=== PATIENT | male | born 1940 | race Caucasian/White ===

== ENCOUNTER 2019-04-21 07:44 | Emergency (ER) | payer OTHER ==
[2019-04-21] MEDS ORDERED: HYDROCODONE/APAP 10/325 TAB ONE (08:18)
--- NOTE | 2019-04-21 09:45 | ER ---
Nurse's Notes [facility] Name: Konstantin Hoskins Age: 78 yrs Sex: Male : 1940 Arrival Date: 04/21/2019 Time: 07:47 Bed 7 Private MD: Unknown, Unknown Diagnosis: Multiple fractures of ribs, left side Presentation: 04/21 07:54 Presenting complaint: Patient states: L lateral chest wall pain that began 2 days ago ss after slipping while getting out of shower. Care prior to arrival: None. Mechanism of Injury: Fall from standing position. Trauma event details: Injury occurred in the [facility], Injury occurred: at home. Injury occurred: April 19, 2019. 07:54 Acuity: TIFFANY 3 ss 07:54 Method Of Arrival: Ambulatory ss 07:54 Transition of care: patient was not received from another setting of care. Onset of sv symptoms was April 19, 2019. Risk Assessment: Do you want to hurt yourself or someone else? Patient reports no desire to harm self or others. Initial Sepsis Screen: Does the patient meet any 2 criteria? No. Patient's initial sepsis screen is negative. Does the patient have a suspected source of infection? No. Patient's initial sepsis screen is negative. Triage Assessment: 07:57 General: Appears in no apparent distress. uncomfortable, slender, Behavior is calm, sv cooperative, appropriate for age. Pain: Complains of pain in right lateral anterior chest and right lateral posterior chest Pain currently is 9 out of 10 on a pain scale. Quality of pain is described as sharp, Pain began 2-3 days ago. Is intermittent, episodic, Alleviated by splinting the left side with his arm Aggravated by increased activity, repositioning, coughing or deep breathing. Neuro: Level of Consciousness is awake, alert, obeys commands, Oriented to person, place, time, situation, Moves all extremities. Full function Gait is steady, Speech is normal. Cardiovascular: Heart tones S1 S2 present Patient's skin is warm and dry. Respiratory: Airway is patent Respiratory effort is unlabored, shallow, Respiratory pattern is regular, symmetrical. Derm: Skin is pink, warm \T\ dry. Trauma Activation: Not Applicable Physician: ED Physician; Name: ; Notified At: ; Arrived At: Physician: General Surgeon; Name: ; Notified At: ; Arrived At: Physician: Radiology; Name: ; Notified At: ; Arrived At: Physician: Respiratory; Name: ; Notified At: ; Arrived At: Physician: Lab; Name: ; Notified At: ; Arrived At: Historical: - Allergies: 07:56 No Known Allergies; sv - Home Meds: 07:56 lisinopril 10 mg Oral tab 1 tab once daily [Active]; sv - PMHx: 07:56 Hypertension; sv - PSHx: 07:56 None; sv - Immunization history:: Adult Immunizations up to date, Flu vaccine is not up to date. - Social history:: Smoking status: Patient/guardian denies using tobacco. - Ebola Screening: : No symptoms or risks identified at this time. Screenin:07 Abuse screen: Denies threats or abuse. Denies injuries from another. Nutritional sv screening: No deficits noted. Tuberculosis screening: No symptoms or risk factors identified. Fall Risk None identified. Assessment: 08:08 Reassessment: Patient appears in no apparent distress at this time. No changes from sv previously documented assessment. Patient and/or family updated on plan of care and expected duration. Pain level reassessed. Patient is alert, oriented x 3, equal unlabored respirations, skin warm/dry/pink. See triage assessment. Vital Signs: 07:54 BP 181 / 113; Pulse 88; Resp 20; Temp 97.4(TE); Pulse Ox 97% on R/A; Weight 78.02 kg; ss Height 5 ft. 10 in. (177.80 cm); Pain 9/10; 08:06 BP 163 / 115; Pulse 82; Resp 20; Pulse Ox 97% ; sv 08:58 BP 143 / 85; Pulse 92; Resp 18; Pulse Ox 96% ; sv 09:45 BP 152 / 89; Pulse 76; Resp 18; Pulse Ox 96% ; sv 10:06 BP 174 / 94; Pulse 85; Resp 16; Pulse Ox 97% on R/A; la1 07:54 Body Mass Index 24.68 (78.02 kg, 177.80 cm) Robby Coma Score: 07:54 Eye Response: spontaneous(4). Verbal Response: oriented(5). Motor Response: obeys commands(6). Total: 15. Trauma Score (Adult): 07:54 Eye Response: spontaneous(1); Verbal Response: oriented(1); Motor Response: obeys ss commands(2); Systolic BP: > 89 mm Hg(4); Respiratory Rate: 10 to 29 per min(4); Union Score: 15; Trauma Score: 12 ED Course: 07:47 Patient arrived in ED. ag5 07:48 Unknown, Unknown is Private Physician. ag5 07:50 Shani Pyle RN is Primary Nurse. sv 07:52 Shay Sena MD is Attending Physician. kdr 07:54 Patient has correct armband on for positive identification. Bed in low position. Call sv light in reach. Adult w/ patient. Pulse ox on. NIBP on. Door closed. Head of bed elevated. 07:55 Triage completed. ss 07:57 Arm band placed on. sv 08:07 Awaiting for x-ray. sv 08:22 Patient moved to radiology via wheelchair. ss 08:30 Chest Pa And Lat (2 Views) XRAY In Process Unspecified. EDMS 08:59 Awaiting radiology results. Awaiting re-evaluation by ER provider. sv 09:56 Ribs Left XRAY In Process Unspecified. EDMS 10:06 No provider procedures requiring assistance completed. Patient did not have IV access la1 during this emergency room visit. 19:16 Primary Nurse role handed off by Shani Pyle RN Administered Medications: 08:06 Drug: [place] 10 mg-325 mg 1 tabs Route: PO; sv 10:08 Follow up: Response: No adverse reaction; Pain is decreased la1 Outcome: 09:45 Discharge ordered by . kdr 10:06 Discharged to home ambulatory. la1 10:06 Discharged to home ambulatory. 10:06 Condition: stable 10:06 Condition: stable 10:06 Discharge instructions given to patient, Instructed on discharge instructions, follow up and referral plans. 10:06 Discharge instructions given to patient, family, Instructed on discharge instructions, follow up and referral plans. medication usage, incentive spirometer use Demonstrated understanding of instructions, follow-up care, medications, Prescriptions given X 1. 10:08 Patient left the ED. la1 Signatures: Dispatcher [employer] EDMS Shani Pyle RN RN sv Rittger, Kevin, MD MD kdr Smirch, Shelby, RN RN ss Attema, Lee, RN RN la1 Fransico, Abilio ag5
--- NOTE | 2019-04-21 09:46 | EDPHYS ---
Physician Documentation [facility] Name: Konstantin Hoskins Age: 78 yrs Sex: Male : 1940 Arrival Date: 04/21/2019 Time: 07:47 Bed 7 Private MD: Unknown, Unknown ED Physician Shay Sena HPI: 04/21 08:15 This 78 yrs old Male presents to ER via Ambulatory with complaints of Fall kdr Injury. 08:15 Details of fall: The patient fell from an upright position, while standing. Onset: The kdr symptoms/episode began/occurred suddenly, 2 day(s) ago. Associated injuries: The patient sustained injury to the chest, specifically the left breast. Severity of symptoms: At their worst the symptoms were mild. The patient has not experienced similar symptoms in the past. The patient has not recently seen a physician. Historical: - Allergies: 07:56 No Known Allergies; sv - Home Meds: 07:56 lisinopril 10 mg Oral tab 1 tab once daily [Active]; sv - PMHx: 07:56 Hypertension; sv - PSHx: 07:56 None; sv - Immunization history:: Adult Immunizations up to date, Flu vaccine is not up to date. - Social history:: Smoking status: Patient/guardian denies using tobacco. - Ebola Screening: : No symptoms or risks identified at this time. ROS: 08:15 Constitutional: Negative for fever, chills, and weight loss, Eyes: Negative for injury, kdr pain, redness, and discharge, ENT: Negative for injury, pain, and discharge, Neck: Negative for injury, pain, and swelling, Respiratory: Negative for shortness of breath, cough, wheezing, and pleuritic chest pain, Abdomen/GI: Negative for abdominal pain, nausea, vomiting, diarrhea, and constipation, Back: Negative for injury and pain, : Negative for injury, bleeding, discharge, and swelling, MS/Extremity: Negative for injury and deformity, Neuro: Negative for headache, weakness, numbness, tingling, and seizure activity. Psych: Negative for depression, anxiety, suicide ideation, homicidal ideation, and hallucinations, Allergy/Immunology: Negative for hives, rash, and allergies, Endocrine: Negative for neck swelling, polydipsia, polyuria, polyphagia, and marked weight changes, Hematologic/Lymphatic: Negative for swollen nodes, abnormal bleeding, and unusual bruising. 08:15 Cardiovascular: Positive for chest pain, with cough, with movement, of the left breast. 08:15 Skin: Positive for ecchymosis, of the dorsal aspect of left forearm, left wrist and palmar aspect of left forearm, Negative for abscesses, avulsion, burn, cellulitis, diaphoresis, discoloration, erythema, jaundice, laceration(s), lesions. Exam: 08:21 Constitutional: This is a well developed, well nourished patient who is awake, alert, kdr and in no acute distress. Head/Face: Normocephalic, atraumatic. Eyes: Pupils equal round and reactive to light, extra-ocular motions intact. Lids and lashes normal. Conjunctiva and sclera are non-icteric and not injected. Cornea within normal limits. Periorbital areas with no swelling, redness, or edema. Neck: Trachea midline, no thyromegaly or masses palpated, and no cervical lymphadenopathy. Supple, full range of motion without nuchal rigidity, or vertebral point tenderness. No Meningismus. Chest/axilla: Normal chest wall appearance and motion. No deformity. Tender to palpation below left nipple with occasional popping. No crepitus. No lesions are appreciated. Cardiovascular: Regular rate and rhythm with a normal S1 and S2. No gallops, murmurs, or rubs. Normal PMI, no JVD. No pulse deficits. Respiratory: Lungs have equal breath sounds bilaterally, clear to auscultation and percussion. No rales, rhonchi or wheezes noted. No increased work of breathing, no retractions or nasal flaring. Abdomen/GI: Soft, non-tender, with normal bowel sounds. No distension or tympany. No guarding or rebound. No evidence of tenderness throughout. Back: No spinal tenderness. No costovertebral tenderness. Full range of motion. Skin: Warm, dry with normal turgor. Normal color with no rashes, no lesions, and no evidence of cellulitis. MS/ Extremity: Pulses equal, no cyanosis. Neurovascular intact. Full, normal range of motion. Neuro: Awake and alert, GCS 15, oriented to person, place, time, and situation. Cranial nerves II-XII grossly intact. Motor strength 5/5 in all extremities. Sensory grossly intact. Cerebellar exam normal. Normal gait. Psych: Awake, alert, with orientation to person, place and time. Behavior, mood, and affect are within normal limits. Vital Signs: 07:54 BP 181 / 113; Pulse 88; Resp 20; Temp 97.4(TE); Pulse Ox 97% on R/A; Weight 78.02 kg; ss Height 5 ft. 10 in. (177.80 cm); Pain 9/10; 08:06 BP 163 / 115; Pulse 82; Resp 20; Pulse Ox 97% ; sv 08:58 BP 143 / 85; Pulse 92; Resp 18; Pulse Ox 96% ; sv 09:45 BP 152 / 89; Pulse 76; Resp 18; Pulse Ox 96% ; sv 10:06 BP 174 / 94; Pulse 85; Resp 16; Pulse Ox 97% on R/A; la1 07:54 Body Mass Index 24.68 (78.02 kg, 177.80 cm) ss Robby Coma Score: 07:54 Eye Response: spontaneous(4). Verbal Response: oriented(5). Motor Response: obeys ss commands(6). Total: 15. Trauma Score (Adult): 07:54 Eye Response: spontaneous(1); Verbal Response: oriented(1); Motor Response: obeys ss commands(2); Systolic BP: > 89 mm Hg(4); Respiratory Rate: 10 to 29 per min(4); Comanche Score: 15; Trauma Score: 12 MDM: 08:21 Data reviewed: vital signs, nurses notes, radiologic studies. Counseling: I had a kdr detailed discussion with the patient and/or guardian regarding: the historical points, exam findings, and any diagnostic results supporting the discharge/admit diagnosis, radiology results, the need for outpatient follow up. 09:45 Patient medically screened. kdr 04/21 08:01 Order name: Chest Pa And Lat (2 Views) XRAY sv 04/21 09:01 Order name: Ribs Left XRAY kdr 04/21 09:48 Order name: INCENTIVE SPIROMETRY kdr Administered Medications: 08:06 Drug: [place] 10 mg-325 mg 1 tabs Route: PO; sv 10:08 Follow up: Response: No adverse reaction; Pain is decreased la1 Disposition: 04/21/19 09:45 Discharged to Home. Impression: Multiple fractures of ribs, left side. - Condition is Fair. - Discharge Instructions: Incentive Spirometer, Rib Fracture, [id number]. - Prescriptions for Tylenol- Codeine #3 300-30 mg Oral Tablet - take 2 tablets by ORAL route every 6 hours As needed; 30 tablet. - Medication Reconciliation Form, Thank You Letter, Prescription Opioid Use form. - Follow up: Private Physician; When: 2 - 3 days; Reason: If symptoms return, Further diagnostic work-up, Recheck today's complaints, Continuance of care, Re-evaluation by your physician. - Problem is new. - Symptoms have improved. Signatures: Dispatcher [employer] EDMS Shani Pyle RN RN sv Shay Sena MD MD kdr Asif Underwood RN RN la1 Corrections: (The following items were deleted from the chart) 10:08 09:45 04/21/2019 09:45 Discharged to Home. Impression: Multiple fractures of ribs, left la1 side. Condition is Fair. Forms are Medication Reconciliation Form, Thank You Letter, Antibiotic Education, Prescription Opioid Use. Follow up: Private Physician; When: 2 - 3 days; Reason: If symptoms return, Further diagnostic work-up, Recheck today's complaints, Continuance of care, Re-evaluation by your physician. Problem is new. Symptoms have improved. kdr
--- NOTE | 2019-04-21 11:31 | RAD REPORT ---
EXAM DESCRIPTION: RAD - Chest Pa And Lat (2 Views) - 04/21/2019 8:31 am CLINICAL HISTORY: fall;Pain Chest pain. COMPARISON: Ribs Left dated 04/21/2019 FINDINGS: The lungs are clear. No pneumothorax. The heart is normal in size. Coronary calcification is noted. Nondisplaced oblique fracture affecting the left lateral fifth, sixth and seventh ribs note d.
--- NOTE | 2019-04-21 11:47 | RAD REPORT ---
EXAM DESCRIPTION: RAD - Ribs Left - 04/21/2019 9:54 am CLINICAL HISTORY: Fall and thorax pain Fall, chest pain COMPARISON: Chest Pa And Lat (2 Views) dated 04/21/2019 FINDINGS: Nondisplaced lateral left fifth, sixth and seventh rib fractures are suspected. Bones are demineralized. No pneumothorax.
== END 2019-04-21 10:08 | disposition home or self-care (01) ==
LOC: ER 07:44
DX: S22.42XA Multiple fractures of ribs, left side, initial encounter for closed fracture (principal); W18.30XA Fall on same level, unspecified, initial encounter; I10 Essential (primary) hypertension
CPT/HCPCS: 71046; 99284

== ENCOUNTER 2020-02-02 10:45 | Emergency (ER) | payer OTHER ==
--- NOTE | 2020-02-02 12:13 | ER ---
Nurse's Notes [facility] Name: Konstantin Hoskins Age: 79 yrs Sex: Male : 1940 Arrival Date: 02/02/2020 Time: 10:48 Bed 17 Private MD: Diagnosis: Urinary tract infection, site not specified Presentation: 02/01 10:52 Chief complaint: Patient states: pain with urination x 5 days, denies nausea, vomiting dm5 and other abdominal pain. Coronavirus screen: The patient has NOT traveled to a country currently being monitored by the [facility] within the last 14 days. Proceed with normal triage procedures. The patient has NOT had contact with any known and/or suspected case of coronavirus. Proceed with normal triage procedures. Ebola Screen: Patient negative for fever greater than or equal to 101.5 degrees Fahrenheit, and additional compatible Ebola Virus Disease symptoms Patient denies exposure to infectious person. Patient denies travel to an Ebola-affected area in the 21 days before illness onset. No symptoms or risks identified at this time. Initial Sepsis Screen: Does the patient meet any 2 criteria? No. Patient's initial sepsis screen is negative. Does the patient have a suspected source of infection? No. Patient's initial sepsis screen is negative. Risk Assessment: Do you want to hurt yourself or someone else? Patient reports no desire to harm self or others. 10:52 Method Of Arrival: Ambulatory dm5 10:52 Acuity: TIFFANY 3 dm5 12:00 Onset of symptoms was January 28, 2020. vc Triage Assessment: 12:00 General: Appears in no apparent distress. comfortable, Behavior is calm, cooperative, vc appropriate for age. Historical: - Allergies: 12:46 No Known Allergies; jl7 - Home Meds: 12:46 lisinopril 10 mg Oral tab 1 tab once daily [Active]; jl7 - PMHx: 12:46 Hypertension; jl7 - PSHx: 12:46 None; jl7 - Immunization history:: Adult Immunizations unknown. - Social history:: Smoking status: unknown. Screenin:00 Abuse screen: Denies threats or abuse. Nutritional screening: No deficits noted. vc Tuberculosis screening: No symptoms or risk factors identified. Fall Risk None identified. Assessment: 12:00 General: Appears in no apparent distress. comfortable, Behavior is calm, cooperative, vc appropriate for age. Pain: Complains of pain in with urination. Neuro: Level of Consciousness is awake, alert, obeys commands. Respiratory: Airway is patent Respiratory effort is even, unlabored, Respiratory pattern is regular, symmetrical. : Reports pain with urination. 12:35 Reassessment: Pt will be discharged once shot time is up. 7 Vital Signs: 10:52 BP 128 / 70; Pulse 79; Resp 18; Temp 97(TE); Pulse Ox 98% on R/A; Weight 78.56 kg (M); dm5 Height 5 ft. 9 in. (175.26 cm) (R); 12:15 BP 115 / 60; Pulse 73; Resp 17; Temp 97.6; Pulse Ox 98% on R/A; mh5 10:52 Body Mass Index 25.58 (78.56 kg, 175.26 cm) [facility] ED Course: 10:48 Patient arrived in ED. mr 10:54 Triage completed. [facility] 11:22 Sal Vaughan PA is PHCP. [facility] 11:22 Yadiel Bear MD is Attending Physician. [facility] 11:23 Madina Byers, RONNY is Primary Nurse. vc 12:09 Urine collected: clean catch specimen, cloudy. [facility] 12:09 Patient has correct armband on for positive identification. Bed in low position. Call 5 light in reach. Pulse ox on. NIBP on. 12:12 Natanael Bellamy MD is Referral Physician. [facility] 12:37 Urine Culture Sent. [facility] 12:48 No provider procedures requiring assistance completed. Patient did not have IV access jl during this emergency room visit. Administered Medications: 12:35 Drug: Rocephin (cefTRIAXone) 1 grams Route: IM; Site: right ventrogluteal; jl7 12:45 Follow up: Response: No adverse reaction vc Outcome: 12:12 Discharge ordered by . [facility] 12:48 Discharged to home ambulatory. 7 12:48 Condition: stable 12:48 Discharge instructions given to patient, Instructed on discharge instructions, follow up and referral plans. medication usage, Demonstrated understanding of instructions, follow-up care, medications. 12:59 Patient left the ED. vc Addendum: 02/04/2020 08:26 Addendum: Culture Results: Positive urine culture. Bacteria is resistant to, has i w intermediate sensitivity, or is not tested against prescribed antibiotics. Report given to NADIRA for further evaluation and then to cream ripener for follow up with patient. Phone call Attempt #1 no answer, and no voice mail set up. Signatures: Odessa Booker, RN RN dm5 Sal Vaughan PA PA jmm Rivera, Mary mr AggarwalLisa RN RN iw Martinez, Maria Aroldo Cole RN RN jl7 Madina Byers RN RN vc Corrections: (The following items were deleted from the chart) 08:28 08:26 Addendum: Culture Results: Positive urine culture. iw chan
--- NOTE | 2020-02-02 12:13 | EDPHYS ---
Physician Documentation [facility] Name: Konstantin Hoskins Age: 79 yrs Sex: Male : 1940 Arrival Date: 02/02/2020 Time: 10:48 Bed 17 Private MD: ED Physician Yadiel Bear HPI: 02/01 11:45 This 79 yrs old Male presents to ER via Ambulatory with complaints of Urinary jmm Problem. 11:45 The patient presents with urinary symptoms, dysuria, urinary frequency. Onset: The jmm symptoms/episode began/occurred gradually, 5 day(s) ago. Modifying factors: The symptoms are alleviated by nothing, the symptoms are aggravated by nothing. This is a 79 year old male with a history of htn that presents to the ED with complaints of difficulty with urination and increased frequency over the past 5 days. Patient denies abdominal pain, fullness, vomiting, fever, back pain. Patient had a similar episode 15 years ago. . Historical: - Allergies: 12:46 No Known Allergies; jl7 - Home Meds: 12:46 lisinopril 10 mg Oral tab 1 tab once daily [Active]; jl7 - PMHx: 12:46 Hypertension; jl7 - PSHx: 12:46 None; jl7 - Immunization history:: Adult Immunizations unknown. - Social history:: Smoking status: unknown. ROS: 11:45 Constitutional: Negative for fever, chills, and weight loss, Cardiovascular: Negative jmm for chest pain, palpitations, and edema, Respiratory: Negative for shortness of breath, cough, wheezing, and pleuritic chest pain. 11:45 : Positive for urinary symptoms. 11:45 All other systems are negative. Exam: 11:45 Constitutional: This is a well developed, well nourished patient who is awake, alert, jmm and in no acute distress. Head/Face: atraumatic. Eyes: EOMI, no conjunctival erythema appreciated ENT: Moist Mucus Membranes Neck: Trachea midline, Supple Chest/axilla: Normal chest wall appearance and motion. Cardiovascular: Regular rate and rhythm. No edema appreciated Respiratory: Normal respirations, no respiratory distress appreciated Abdomen/GI: Non distended, soft Back: Normal ROM Skin: General appearance color normal MS/ Extremity: Moves all extremities, no obvious deformities appreciated, no edema noted to the lower extremities Neuro: Awake and alert, normal gait Psych: Behavior is normal, Mood is normal, Patient is cooperative and pleasant Vital Signs: 10:52 BP 128 / 70; Pulse 79; Resp 18; Temp 97(TE); Pulse Ox 98% on R/A; Weight 78.56 kg (M); dm5 Height 5 ft. 9 in. (175.26 cm) (R); 12:15 BP 115 / 60; Pulse 73; Resp 17; Temp 97.6; Pulse Ox 98% on R/A; mh5 10:52 Body Mass Index 25.58 (78.56 kg, 175.26 cm) dm5 MDM: 11:23 Patient medically screened. [facility] 12:09 Data reviewed: vital signs, nurses notes. Counseling: I had a detailed discussion with komal the patient and/or guardian regarding: the historical points, exam findings, and any diagnostic results supporting the discharge/admit diagnosis, lab results, the need for outpatient follow up, to return to the emergency department if symptoms worsen or persist or if there are any questions or concerns that arise at home. ED course: Patient prescribed oral antibiotics and advised to follow up with Urology for further evaluation. Patient is otherwise given strict return precautions. patient understood and agrees with the plan of care. . 02/01 11:25 Order name: Urine Culture [facility] 02/01 11:37 Order name: Urine Dipstick--Ancillary (enter results); Complete Time: 12:41 02/01 11:25 Order name: Urine Dipstick-Ancillary (obtain specimen); Complete Time: 11:33 [facility] Administered Medications: 12:35 Drug: Rocephin (cefTRIAXone) 1 grams Route: IM; Site: right ventrogluteal; jl7 12:45 Follow up: Response: No adverse reaction vc Disposition: 02/02/20 12:12 Discharged to Home. Impression: Urinary tract infection, site not specified. - Condition is Stable. - Discharge Instructions: Urinary Tract Infection, Adult. - Prescriptions for Cephalexin 500 mg Oral Capsule - take 1 capsule by ORAL route every 12 hours for 10 days; 20 capsule. - Medication Reconciliation Form, Thank You Letter, Antibiotic Education, Prescription Opioid Use form. - Follow up: Natanael Bellamy MD; When: 2 - 3 days; Reason: Recheck today's complaints, Continuance of care, Re-evaluation by your physician. Addendum: 02/04/2020 09:05 Co-signature as Attending Physician, Yadiel Bear MD I agree with the assessment and c reyes plan of care. Signatures: Dispatcher [employer] EDYadiel Bates MD MD cha Mickail, Joel, PA PA jmm Leal, Jahala, RN RN jl7 Madina Byers RN RN vc Corrections: (The following items were deleted from the chart) 02/01 12:59 12:12 02/02/2020 12:12 Discharged to Home. Impression: Urinary tract infection, site vc not specified. Condition is Stable. Forms are Medication Reconciliation Form, Thank You Letter, Antibiotic Education, Prescription Opioid Use. Follow up: Natanael Bellamy; When: 2 - 3 days; Reason: Recheck today's complaints, Continuance of care, Re-evaluation by your physician. komal
[2020-02-02 12:28] LABS: Urine Blood 2+ (NEG); Urine Glucose NEGATIVE (NEG); Urine Protein 2+ (NEG); Urine pH 5.5 (5.0-7.0)
[2020-02-02] MEDS ORDERED: CEFTRIAXONE 1000 MG/VIAL ONE (12:39)
[2020-02-02] MEDS ORDERED: LIDOCAINE 1% MPF 2 ML AMPULE ONE (12:40)
[2020-02-02 13:06] VITALS: O2SAT 98
[2020-02-02 13:08] VITALS: BP 115/60; TEMP 97.6
== END 2020-02-02 12:59 | disposition home or self-care (01) ==
LOC: ER 10:45
DX: N39.0 Urinary tract infection, site not specified (principal)
CPT/HCPCS: 87088; 87086; 87077; 87186; 81003; 96372; 99283; J2001

== ENCOUNTER 2020-02-20 08:43 | Emergency (ER) | payer OTHER ==
--- NOTE | 2020-02-20 09:30 | EDPHYS ---
Physician Documentation [facility] Name: Konstantin Hoskins Age: 79 yrs Sex: Male : 1940 Arrival Date: 02/20/2020 Time: 08:44 Bed 19 Private MD: ED Physician Dominguez Ernandez HPI: 02/19 08:57 This 79 yrs old Male presents to ER via Ambulatory with complaints of urinary ms3 frequency and only producing small amounts of urine. 08:57 The patient presents with urinary symptoms, dribbling of urine, urinary frequency, ms3 constant. Onset: The symptoms/episode began/occurred 3 week(s) ago. Modifying factors: The symptoms are alleviated by nothing, the symptoms are aggravated by nothing. Associated signs and symptoms: Pertinent negatives: abdominal pain, diarrhea, dysuria, fever, hematuria, nausea, vomiting. Severity of symptoms: At their worst the symptoms were moderate, in the emergency department the symptoms are unchanged. The patient has experienced a previous episode. The patient has been recently seen by a physician: seen at the OR and has finished course of unknown abx for UTI. Historical: - Allergies: 08:55 No Known Allergies; aa5 - PMHx: 08:55 Hypertension; ss - Immunization history:: Adult Immunizations up to date. - Family history:: not pertinent. ROS: 08:57 Constitutional: Negative for fever, and chills. Eyes: Negative for injury, pain, ms3 redness, and discharge, ENT: Negative for injury, pain, and discharge, Neck: Negative for injury, pain, and swelling, Cardiovascular: Negative for chest pain, and palpitations. Respiratory: Negative for shortness of breath, cough, wheezing, and pleuritic chest pain, Abdomen/GI: Negative for abdominal pain, nausea, vomiting, diarrhea, and constipation, Back: Negative for injury and pain. 08:57 Skin: Negative for injury, rash, and discoloration. 08:57 : Positive for urinary symptoms, urinary frequency, small amounts. 08:57 All other systems are negative. Exam: 08:57 Constitutional: This is a well developed, well nourished patient who is awake, alert, ms3 and in no acute distress. Head/Face: Normocephalic, atraumatic. Eyes: Pupils equal round and reactive to light, extra-ocular motions intact. Lids and lashes normal. Conjunctiva and sclera are non-icteric and not injected. Cornea within normal limits. Periorbital areas with no swelling, redness, or edema. Chest/axilla: Normal chest wall appearance and motion. Nontender with no deformity. Cardiovascular: Regular rate and rhythm. Respiratory: No increased work of breathing, no retractions or nasal flaring. 08:57 Back: No spinal tenderness. No costovertebral tenderness. Full range of motion. MS/ Extremity: Pulses equal, no cyanosis. Neurovascular intact. Full, normal range of motion. 08:57 Abdomen/GI: Palpation: abdomen is soft and non-tender, in all quadrants, mass, is not appreciated. Vital Signs: 09:02 BP 138 / 85; Pulse 74; Resp 16; Temp 97.6(TE); Pulse Ox 100% on R/A; Weight 77.56 kg; ss Pain 0/10; Procedures: 08:57 Ultrasound: Type: Bedside Ultrasound of bladder shows bladder to 4 cm below umbilicus. ms3 Will repeat US after patient voids.. MDM: 08:56 Patient medically screened. ms3 09:32 Data reviewed: vital signs, nurses notes, lab test result(s), urinalysis, hematuria, ms3 pyuria. 09:32 Differential diagnosis: nonspecific abdominal pain, UTI, urinary retention. Medical ms3 screen evaluation completed. EMTALA emergency medical condition absent. ED course: Repeat BS ultrasound showed bladder to 6 cm below umbilicus. Discussed UA with pt. Pt recently completed course of Keflex. Will give Rx for Bactrim DS. Pt offered vanegas catheter and pt declined. Pt to follow up with his PMD in 24-48 hours. Pt understands/ agrees with plan. All questions answered. Return precautions discussed. Pt a/o x4, nad, non-toxic, ambuatory in ED. . 02/19 09:22 Order name: Urine Culture 02/19 09:12 Order name: Urine Dipstick-Ancillary (obtain specimen); Complete Time: 09:14 ss 02/19 09:23 Order name: Urine Dipstick--Ancillary (enter results); Complete Time: 09:36 bd 02/19 09:36 Interpretation: Abnormal: USPGR 1.020; UGLUC NEGATIVE; UKET NEGATIVE; UBLD 1+; UPH 8.5; ms3 UPROT 1+; U NIT NEGATIVE; UESTR 3+. Administered Medications: No medications were administered Disposition: 09:38 Co-signature as Attending Physician, Dominguez Ernandez DO. ms3 Disposition: 02/20/20 09:29 Discharged to Home. Impression: Urinary tract infection, site not specified, Acute cystitis. - Condition is Stable. - Discharge Instructions: Urinary Tract Infection, Adult. - Prescriptions for Bactrim DS 800- 160 mg Oral Tablet - take 1 tablet by ORAL route every 12 hours for 10 days; 20 tablet. - Medication Reconciliation Form, Thank You Letter, Antibiotic Education, Prescription Opioid Use form. - Follow up: Private Physician; When: 24 Hours; Reason: Re-evaluation by your physician. - Problem is new. - Symptoms are unchanged. Signatures: Dispatcher [employer] [facility] Dennise Camarena RN RN aa5 Ruma Helms RN RN ss Dominguez Ernandez DO DO ms3 Corrections: (The following items were deleted from the chart) 09:33 08:56 URINALYSIS+U.LAB.BRZ ordered. [facility] EDMS 09:36 09:36 USPGR 1.020; UGLUC NEGATIVE; UKET NEGATIVE; UBLD 1+; UPH 8.5; UPROT 1+; U NIT ms3 NEGATIVE; UESTR 3+. ms3 09:44 09:29 02/20/2020 09:29 Discharged to Home. Impression: Urinary tract infection, site aa5 not specified; Acute cystitis. Condition is Stable. Forms are Medication Reconciliation Form, Thank You Letter, Antibiotic Education, Prescription Opioid Use. Follow up: Private Physician; When: 24 Hours; Reason: Re-evaluation by your physician. Problem is new. Symptoms are unchanged. ms3
--- NOTE | 2020-02-20 09:30 | ER ---
Nurse's Notes [facility] Name: Konstantin Hoskins Age: 79 yrs Sex: Male : 1940 Arrival Date: 02/20/2020 Time: 08:44 Bed 19 Private MD: Diagnosis: Urinary tract infection, site not specified;Acute cystitis Presentation: 02/19 08:51 Chief complaint: Patient states: urinary retention x 1 month. Pt has urgency, but ss states he has only has been able to dribble. Was recently treated for UTI 3 weeks ago. Coronavirus screen: Patient denies fever greater than 100.4F, cough, shortness of breath, or difficulty breathing. Proceed with normal triage process. Ebola Screen: Patient denies exposure to infectious person. Patient denies travel to an Ebola-affected area in the 21 days before illness onset. Risk Assessment: Do you want to hurt yourself or someone else? Patient reports no desire to harm self or others. 08:51 Method Of Arrival: Ambulatory ss 08:51 Acuity: TIFFANY 3 ss 08:55 Initial Sepsis Screen: Does the patient meet any 2 criteria? No. Patient's initial aa5 sepsis screen is negative. Does the patient have a suspected source of infection? No. Patient's initial sepsis screen is negative. Historical: - Allergies: 08:55 No Known Allergies; aa5 - PMHx: 08:55 Hypertension; ss - Immunization history:: Adult Immunizations up to date. - Family history:: not pertinent. Screenin:02 Abuse screen: Denies threats or abuse. Denies injuries from another. Nutritional ss screening: No deficits noted. Tuberculosis screening: Never had TB. Fall Risk None identified. Assessment: 08:50 General: Appears comfortable, Behavior is calm, cooperative. Pain: Denies pain. Neuro: aa5 Level of Consciousness is awake, alert, obeys commands, Oriented to person, place, time, situation. Cardiovascular: Patient's skin is warm and dry. Respiratory: Airway is patent Respiratory effort is even, unlabored, Respiratory pattern is regular, symmetrical. GI: No signs and/or symptoms were reported involving the gastrointestinal system. : Reports inability to void, urgency, urinary frequency. EENT: No signs and/or symptoms were reported regarding the EENT system. Derm: Skin is pink, warm \T\ dry. Musculoskeletal: Range of motion: intact in all extremities. 09:20 Reassessment: Urine collected, pt voided 30cc of cloudy urine, urine culture sent to aa5 lab. . 09:34 Reassessment: Patient is alert, oriented x 3, equal unlabored respirations, skin aa5 warm/dry/pink. Vital Signs: 09:02 BP 138 / 85; Pulse 74; Resp 16; Temp 97.6(TE); Pulse Ox 100% on R/A; Weight 77.56 kg; ss Pain 0/10; ED Course: 08:44 Patient arrived in ED. am2 08:47 Dominguez Ernandez DO is Attending Physician. ms3 08:55 Triage completed. ss 08:55 Arm band placed on right wrist. ss 09:02 Patient has correct armband on for positive identification. Bed in low position. Call ss light in reach. 09:08 Dennise Camarena, RN is Primary Nurse. aa5 09:35 No provider procedures requiring assistance completed. Patient did not have IV access aa5 during this emergency room visit. Administered Medications: No medications were administered Outcome: 09:29 Discharge ordered by MD. ms3 09:34 Discharged to home ambulatory. aa5 09:34 Condition: stable 09:34 Discharge instructions given to patient, Instructed on discharge instructions, follow up and referral plans. medication usage, Demonstrated understanding of instructions, follow-up care, medications, Prescriptions given X 1. 09:35 Patient left the ED. aa5 Addendum: 02/23/2020 07:26 Addendum: Culture Results: Positive urine culture. No further action required. Bacteria e b sensitive to prescribed antibiotic. Signatures: Dennise Camarena, RONNY JEFFERSON aa5 Ruma Helms RN RN ss Moreno, Amanda am2 Jessy Gibbons Dominguez Ernandez DO DO ms3 Corrections: (The following items were deleted from the chart) 02/19 09:46 09:44 Patient left the ED. aa5 aa5
[2020-02-20 09:32] LABS: Urine Blood 1+ (NEG); Urine Glucose NEGATIVE (NEG); Urine Protein 1+ (NEG); Urine pH 8.5 (5.0-7.0)
[2020-02-20 10:22] VITALS: BP 138/85; TEMP 97.6; O2SAT 100
== END 2020-02-20 09:44 | disposition home or self-care (01) ==
LOC: ER 08:43
DX: N39.0 Urinary tract infection, site not specified (principal); I10 Essential (primary) hypertension
CPT/HCPCS: 81003; 87077; 87086; 87088; 87186; 99282

== ENCOUNTER 2020-07-29 11:31 | Emergency (ER) | payer OTHER ==
--- NOTE | 2020-07-29 13:05 | RAD REPORT ---
EXAM DESCRIPTION: US - Extremity Venous Uni Ltd - 07/29/2020 12:57 pm CLINICAL HISTORY: SWELLING, right leg pain COMPARISON: None. TECHNIQUE: Real-time sonographic evaluation of the right lower extremity deep venous systems was per formed. FINDINGS: Normal compressibility, flow augmentation, phasic flow and spontaneous flow are identified in the right lower extremity common femoral, superficial femoral, popliteal and posterior tibial vei ns. No intraluminal filling defects seen. IMPRESSION: No DVT in the right lower extremity.
--- NOTE | 2020-07-29 13:43 | RAD REPORT ---
EXAM DESCRIPTION: RAD - Knee Right 3 View - 07/29/2020 1:32 pm CLINICAL HISTORY: Pain;Swelling COMPARISON: No comparisons FINDINGS: No acute fracture of the distal femur or patella seen. An acute tibial plateau fracture is not suspected. The patient does have concavity to the lateral tibial plateau with increased scleroti c change deep to the cortical margin. No trauma history was provided. Subtle cortical irregularity se en in the metaphyseal portion of the proximal fibula. Small to moderate joint effusion is present. Minimal marginal spurring without joint space narrowing in the medial compartment. Minimal patella articular margin spurring. Arterial tree calcifications are present. No foreign body. IMPRESSION: There is concavity of the lateral tibial plateau and subtle cortical irregularity of the proximal fibula. Trauma history was not provided. Subacute fracture cannot be excluded. Small to moderate joint effusion. Clinical concerns for internal derangement or occult bony injury could be further assessed with MR im aging.
--- NOTE | 2020-07-29 13:47 | ER ---
Nurse's Notes [facility] Name: Konstantin Hoskins Age: 79 yrs Sex: Male : 1940 Arrival Date: 07/29/2020 Time: 11:36 Bed 7 Private MD: Diagnosis: Subacute tibial plateau fracture Presentation: 07/29 11:43 Chief complaint: Patient states: RLE swelling with pitting edema for 10 days. ll1 Coronavirus screen: Client denies travel out of the [place] in the last 14 days. At this time, the client does not indicate any symptoms associated with coronavirus-19. Ebola Screen: Patient denies travel to an Ebola-affected area in the 21 days before illness onset. Initial Sepsis Screen: Does the patient meet any 2 criteria? No. Patient's initial sepsis screen is negative. Risk Assessment: Do you want to hurt yourself or someone else? Patient reports no desire to harm self or others. Onset of symptoms was July 20, 2020. 11:43 Method Of Arrival: Ambulatory ll1 11:43 Acuity: TIFFANY 3 ll1 Triage Assessment: 12:00 General: Behavior is appropriate for age. jr10 Historical: - Allergies: 11:45 No Known Allergies; ll1 - PMHx: 11:45 Hypertension; prostate problem-catheter; mild dementia; A fib; ll1 - PSHx: 11:45 staph infection left arm; ll1 - Immunization history:: Flu vaccine is not up to date. - Social history:: Smoking status: Patient denies any tobacco usage or history of. Patient/guardian denies using alcohol, street drugs. - Family history:: not pertinent. - Hospitalizations: : No recent hospitalization is reported. Screenin:00 Fall Risk Fall in past 12 months (25 points). No secondary diagnosis (0 pts). No IV (0 jr10 pts). Ambulatory Aid- None/Bed Rest/Nurse Assist (0 pts). Gait- Normal/Bed Rest/Wheelchair (0 pts) Mental Status- Overestimates/Forgets Limitations (15 pts.). 12:15 Abuse screen: Denies threats or abuse. Denies injuries from another. Nutritional jr10 screening: No deficits noted. Tuberculosis screening: No symptoms or risk factors identified. Assessment: 13:17 General: Appears in no apparent distress. Pain: Denies pain. Neuro: No deficits noted. jr10 Cardiovascular: Denies chest pain, Patient's skin is warm and dry. Pulses are all present. Edema is 2+ to right midcalf, right ankle, right foot and right toes pitting to right midcalf, right ankle, right foot and right toes. Respiratory: No deficits noted. Airway is patent Respiratory effort is even, unlabored, Respiratory pattern is regular, symmetrical, Denies cough, shortness of breath. GI: No deficits noted. No signs and/or symptoms were reported involving the gastrointestinal system. : No deficits noted. No signs and/or symptoms were reported regarding the genitourinary system. EENT: No deficits noted. No signs and/or symptoms were reported regarding the EENT system. Derm: No deficits noted. No signs and/or symptoms reported regarding the dermatologic system. Musculoskeletal: No deficits noted. No signs and/or symptoms reported regarding the musculoskeletal system. Circulation, motion, and sensation intact. Capillary refill < 3 seconds, Range of motion: intact in all extremities, Swelling present in right leg. Vital Signs: 11:43 BP 188 / 97; Pulse 64; Resp 17; Temp 97.9; Pulse Ox 100% ; Weight 83.46 kg; Height 5 ll1 ft. 10 in. (177.80 cm); Pain 0/10; 13:19 BP 183 / 93; Pulse 71; Resp 18; Pulse Ox 100% on R/A; Pain 0/10; jr10 14:43 BP 157 / 89; Pulse 71; Resp 18; Pulse Ox 100% on R/A; jr10 11:43 Body Mass Index 26.40 (83.46 kg, 177.80 cm) ll1 ED Course: 11:36 Patient arrived in ED. mr 11:44 Triage completed. ll1 11:45 Arm band placed on Patient placed in an exam room, on a stretcher. ll1 11:50 Jerome Dorado MD is Attending Physician. rn 12:15 Patient has correct armband on for positive identification. Bed in low position. Call jr10 light in reach. Side rails up X2. daughter at bedside, pt has hx of dementia. Pulse ox on. NIBP on. 12:15 No provider procedures requiring assistance completed. Patient did not have IV access jr10 during this emergency room visit. 12:26 Shaniqua Longoria, RN is Primary Nurse. jr10 12:57 Extremity Venous Uni Ltd US In Process Unspecified. EDMS 13:32 XRAY Knee RIGHT 3 view In Process Unspecified. EDMS 13:46 Jose Angel Machado MD is Referral Physician. rn 14:30 Knee immobilizer applied on right knee. mh5 Administered Medications: No medications were administered Outcome: 13:46 Discharge ordered by MD. rn 14:43 Discharged to home via wheelchair. jr10 14:43 Condition: good 14:43 Discharge instructions given to patient, family, daughter Instructed on discharge instructions, follow up and referral plans. Demonstrated understanding of instructions, follow-up care. 14:45 Patient left the ED. jr10 Signatures: Dispatcher [employer] EDPR Vandana Longoria Roman, MD MD rn Martinez, Maria mh5 Lewis, Lynsay, RN RN 1 Shaniqua Longoria, RN RN jr10
--- NOTE | 2020-07-29 13:47 | EDPHYS ---
Physician Documentation [facility] Name: Konstantin Hoskins Age: 79 yrs Sex: Male : 1940 Arrival Date: 07/29/2020 Time: 11:36 Bed 7 Private MD: ED Physician Jerome Dorado HPI: 07/29 13:39 This 79 yrs old Male presents to ER via Ambulatory with complaints of Leg rn Swelling. 13:39 The patient presents with swelling. The complaints affect the right knee and right rn brand. Onset: The symptoms/episode began/occurred 3 week(s) ago. Associated signs and symptoms: Pertinent positives: swelling, Pertinent negatives fever, weakness. Severity of symptoms: At their worst the symptoms were mild, in the emergency department the symptoms are unchanged. The patient has experienced a previous episode. Reports a few weeks ago twisted right knee, but able to ambulate, just recently started to have right knee swelling, minimal pain, no fever, no new injury, but swelling extended down right lower leg, especially after using knee sleeve. No hx of DVT, and already on blood thinner. . Historical: - Allergies: 11:45 No Known Allergies; ll1 - PMHx: 11:45 Hypertension; prostate problem-catheter; mild dementia; A fib; ll1 - PSHx: 11:45 staph infection left arm; ll1 - Immunization history:: Flu vaccine is not up to date. - Social history:: Smoking status: Patient denies any tobacco usage or history of. Patient/guardian denies using alcohol, street drugs. - Family history:: not pertinent. - Hospitalizations: : No recent hospitalization is reported. ROS: 13:39 Constitutional: Negative for fever, chills, and weight loss, Cardiovascular: Negative rn for chest pain, palpitations Respiratory: Negative for shortness of breath, cough, wheezing, and pleuritic chest pain, Abdomen/GI: Negative for abdominal pain, nausea, vomiting, diarrhea, and constipation, Back: Negative for injury and pain, MS/Extremity: Negative for injury Skin: Negative for injury, rash, and discoloration, Neuro: Negative for headache, weakness, numbness, tingling, and seizure. Exam: 13:39 Constitutional: This is a well developed, well nourished patient who is awake, alert, rn and in no acute distress. MS/ Extremity: Pulses equal, no cyanosis. Neurovascular intact. Full, normal range of motion. + 1+ pitting edema RLE pre-tibial region and ankle, + small knee effusion, no redness/warmth, FROM without pain. Ambulatory without limited ROM. Vital Signs: 11:43 BP 188 / 97; Pulse 64; Resp 17; Temp 97.9; Pulse Ox 100% ; Weight 83.46 kg; Height 5 ll1 ft. 10 in. (177.80 cm); Pain 0/10; 13:19 BP 183 / 93; Pulse 71; Resp 18; Pulse Ox 100% on R/A; Pain 0/10; jr10 14:43 BP 157 / 89; Pulse 71; Resp 18; Pulse Ox 100% on R/A; jr10 11:43 Body Mass Index 26.40 (83.46 kg, 177.80 cm) ll1 MDM: 11:50 Patient medically screened. rn 13:39 Differential diagnosis: tendonitis, internal derangement of knee, knee effusion, rn dependent edema worsened by tight knee brace. Data reviewed: vital signs, nurses notes, radiologic studies, doppler, plain films, and as a result, I will discharge patient. Counseling: I had a detailed discussion with the patient and/or guardian regarding: the historical points, exam findings, and any diagnostic results supporting the discharge/admit diagnosis, radiology results, the need for outpatient follow up, to return to the emergency department if symptoms worsen or persist or if there are any questions or concerns that arise at home. Special discussion: I discussed with the patient/guardian in detail that at this point there is no indication for admission to the hospital. It is understood, however, that if the symptoms persist or worsen the patient needs to return immediately for re-evaluation. Special discussion: Further emergent ED testing is not indicated at this point in time. I discussed with the patient/guardian in detail the need to arrange with the PCP or specialist further outpatient testing, MRI, Based on the history and exam findings, there is no indication for further emergent testing or inpatient evaluation. I discussed with the patient/guardian the need to see the orthopedic surgeon for further evaluation of the symptoms. 13:45 ED course: Possible subacute tibial plateau fracture, will place in knee immobilizer rn and dc home, with ortho f/u. Reports initial injury atleast 3 weeks out.. 07/29 11:59 Order name: XRAY Knee RIGHT 3 view; Complete Time: 13:44 rn 07/29 11:59 Order name: Extremity Venous Uni Ltd US; Complete Time: 13:38 rn 07/29 13:45 Order name: Knee Immobilizer; Complete Time: 14:31 rn Administered Medications: No medications were administered Disposition: 07/29/20 13:46 Discharged to Home. Impression: Subacute tibial plateau fracture. - Condition is Stable. - Discharge Instructions: Knee Effusion, Nondisplaced Tibial Plateau Fracture. - Medication Reconciliation Form, Thank You Letter, Antibiotic Education, Prescription Opioid Use form. - Follow up: Jose Angel Machado MD; When: As needed; Reason: Recheck today's complaints, Re-evaluation by your physician. - Problem is an ongoing problem. - Symptoms have improved. Signatures: Dispatcher [employer] EDMS Jerome Dorado MD MD rn Lewis, Lynsay RN RN ll1 Shaniqua Longoria RN RN jr10 Corrections: (The following items were deleted from the chart) 14:45 13:46 07/29/2020 13:46 Discharged to Home. Impression: Subacute tibial plateau jr10 fracture. Condition is Stable. Forms are Medication Reconciliation Form, Thank You Letter, Antibiotic Education, Prescription Opioid Use. Follow up: Jose Angel Machado; When: As needed; Reason: Recheck today's complaints, Re-evaluation by your physician. Problem is an ongoing problem. Symptoms have improved. rn
[2020-07-29 18:44] VITALS: TEMP 97.9; O2SAT 100
[2020-07-29 18:46] VITALS: BP 157/89
== END 2020-07-29 14:45 | disposition home or self-care (01) ==
LOC: ER 11:31
DX: S82.141A Displaced bicondylar fracture of right tibia, initial encounter for closed fracture (principal); X50.1XXA Overexertion from prolonged static or awkward postures, initial encounter; Y93.9 Activity, unspecified; Y92.9 Unspecified place or not applicable; I10 Essential (primary) hypertension; F03.90 Unspecified dementia, unspecified severity, without behavioral disturbance, psychotic disturbance, mood disturbance, and anxiety
CPT/HCPCS: 93971; 99283

== ENCOUNTER 2023-10-19 19:18 | Emergency (ER) | payer OTHER ==
[2023-10-19] MEDS ORDERED: DERMABOND SKIN ADHESIVE TOP ONE (21:14)
[2023-10-19] MEDS ORDERED: TDAP (DIPHTH,PERTUSS(ACELL),TET VAC) 0.5 ML VIAL IMVAC ONE (21:18)
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
--- NOTE | 2023-10-19 22:22 | EDPHYS ---
Physician Documentation [facility] Name: Konstantin Hoskins Age: 83 yrs Sex: Male : 1940 Arrival Date: 10/19/2023 Time: 19:18 Bed 12 Private MD: ED Physician Abdelrahman Bell HPI: 10/19 21:07 This 83 yrs old Male presents to ER via Ambulatory with complaints of Fall ci Injury, Laceration To Hand - Blood Thinners. 21:07 Patient is an 83-year-old male with PMH hypertension, A-fib on Eliquis, hyperlipidemia ci who presents to the ED with chief complaint of left hand skin tear with bleeding that occurred last night after he fell off a stool. Patient reports he was sleeping on the stool and woke up when he was falling off the stool. No head strike, was sleeping unconscious but awoke, no LOC. Patient has been applying pressure to his left hand skin tear but bleeding has persisted which prompted ED visit. Tetanus not up-to-date.. Historical: - Allergies: 22:28 No Known Allergies; cm10 - PMHx: 22:28 a fib; Hypertension; mild dementia; prostate problem-catheter; cm10 - Immunization history:: Adult Immunizations unknown. - Social history:: Smoking status: Patient denies any tobacco usage or history of. - History obtained from: son. ROS: 21:07 Constitutional: Negative for fever, chills, and weight loss, Cardiovascular: Negative ci for chest pain, palpitations, and edema, Respiratory: Negative for shortness of breath, cough, wheezing, and pleuritic chest pain, Abdomen/GI: Negative for abdominal pain, nausea, vomiting, diarrhea, and constipation, Neuro: Negative for headache, weakness, numbness, tingling, and seizure, 21:07 Skin: Positive for abrasion(s), Skin tear, bleeding, Exam: 21:07 Constitutional: This is a well developed, well nourished patient who is awake, alert, ci and in no acute distress. Head/Face: Normocephalic, atraumatic. Eyes: Pupils equal round and reactive to light, extra-ocular motions intact. Lids and lashes normal. Conjunctiva and sclera are non-icteric and not injected. Cornea within normal limits. Periorbital areas with no swelling, redness, or edema. ENT: Nares patent. No nasal discharge, no septal abnormalities noted. Tympanic membranes are normal and external auditory canals are clear. Oropharynx with no redness, swelling, or masses, exudates, or evidence of obstruction, uvula midline. Mucous membranes moist. Neck: Trachea midline, no thyromegaly or masses palpated, and no cervical lymphadenopathy. Supple, full range of motion without nuchal rigidity, or vertebral point tenderness. No Meningismus. Chest/axilla: Normal chest wall appearance and motion. Nontender with no deformity. No lesions are appreciated. Cardiovascular: Regular rate and rhythm with a normal S1 and S2. No gallops, murmurs, or rubs. Normal PMI, no JVD. No pulse deficits. Respiratory: Lungs have equal breath sounds bilaterally, clear to auscultation and percussion. No rales, rhonchi or wheezes noted. No increased work of breathing, no retractions or nasal flaring. Abdomen/GI: Soft, non-tender, with normal bowel sounds. No distension or tympany. No guarding or rebound. No evidence of tenderness throughout. Back: No spinal tenderness. No costovertebral tenderness. Full range of motion. MS/ Extremity: Pulses equal, no cyanosis. Neurovascular intact. Full, normal range of motion. Neuro: Awake and alert, GCS 15, oriented to person, place, time, and situation. Cranial nerves II-XII grossly intact. Motor strength 5/5 in all extremities. Sensory grossly intact. Cerebellar exam normal. Normal gait. Psych: Awake, alert, with orientation to person, place and time. Behavior, mood, and affect are within normal limits. Vital Signs: 20:20 BP 207 / 96; Pulse 74; Resp 20; Temp 98; Pulse Ox 99% ; Weight 79.38 kg; Height 5 ft. jj7 11 in. ; 22:23 BP 185 / 96; Pulse 92; Resp 18; Pulse Ox 99% ; cm10 20:20 Body Mass Index 24.41 (79.38 kg, 180.34 cm) jj7 [place] Coma Score: 20:20 Eye Response: spontaneous(4). Motor Response: obeys commands(6). Verbal Response: jj7 oriented(5). Total: 15. Trauma Score (Adult): 20:20 Eye Response: spontaneous(1); Verbal Response: oriented(1); Motor Response: obeys jj7 commands(2); Systolic BP: > 89 mm Hg(4); Respiratory Rate: 10 to 29 per min(4); [place] Score: 15; Trauma Score: 12 Laceration: 22:10 Wound Repair of 2cm ( 0.8in ) subcutaneous laceration to left hand. Irregularly ci shaped.. Minimal bleeding noted.. Hemostasis noted.. Distal neuro/vascular/tendon intact. Anesthesia: N/A with N/A. Wound prep: Wound irrigation with saline by me, Wound explored, Copious irrigation. Skin closed with Dermabond Adhesive skin closure using simple sutures and sterile technique. Dressed with non-adherent dressing. Patient tolerated well. MDM: 20:30 Patient medically screened. ci 20:49 Patient medically screened. ci 22:10 Differential diagnosis: abrasion, Skin tear, laceration, head injury. ci 22:10 Historians other than the Patient: Daughter/Son: Son. Care significantly affected by ci the following chronic conditions: Hypertension. Counseling: I had a detailed discussion with the patient and/or guardian regarding the historical points, exam findings, and any diagnostic results supporting the discharge/admit diagnosis, the presence of at least one elevated blood pressure reading (>120/80) during this emergency department visit, to return to the emergency department if symptoms worsen or persist or if there are any questions or concerns that arise at home. Special discussion: Discussed head imaging and hand imaging. Patient is adamant that he did not hit his head, he is AO x3, he has no focal neurodeficits at this time. Discussed obtaining x-ray of the hand to rule out fracture but patient states that his hand does not hurt and his hand would be swollen if it was broken. I discussed given patient blood pressure meds but he states that he did not take any of his blood pressure meds and will take them when he gets home.. 10/19 20:52 Order name: Dermabond; Complete Time: 22:23 ci 10/19 20:52 Order name: Dressing - Wound; Complete Time: 22:23 ci 10/19 20:52 Order name: Gloves, Sterile; Complete Time: 22:23 ci 10/19 20:52 Order name: Setup Suture Tray; Complete Time: 22:23 ci Administered Medications: 21:18 CANCELLED (Duplicate Order): tetanus-diphtheria toxoidadult 0.5 ml IM once; Provide cm10 Vaccine Information Statement (VIS). 21:18 Drug: Boostrix Tdap IM 0.5 ml IM once; as a single dose Route: IM; Site: left deltoid; cm10 21:19 Follow up: Response: (VIS) Vaccine information sheet provided today. Questions and/or cm10 concerns addressed. VIS edition date: Jun 26, 2021. Disposition Summary: 10/19/23 22:22 Discharge Ordered Notes: Location: Home ci Condition: Stable ci Diagnosis - Abrasion of left hand ci - Essential (primary) hypertension ci - Fall (on) (from) unspecified stairs and steps ci Followup: ci - With: Private Physician - When: 2 - 3 days - Reason: Wound Recheck, Recheck today's complaints Discharge Instructions: - Discharge Summary Sheet ci - Hypertension, Adult ci - Abrasion, [id number] ci - Skin Tear, Dimz-aa-Rupm ci - Fall Prevention in the Home, Adult, [id number]-aj-[id number] ci - How to Take Your Blood Pressure, [id number] ci Forms: - Medication Reconciliation Form ci - Thank You Letter ci - Antibiotic Education ci - Prescription Opioid Use ci - Patient Portal Instructions ci - Leadership Thank You Letter ci Signatures: Josi Solomon RN RN cm10 Abdelrahman Bell ci Corrections: (The following items were deleted from the chart) 21:18 20:52 Tetanus-Diphtheria Toxoid IM Adult 0.5 ml IM once; Provide Vaccine Information cm10 Statement (VIS). ordered. ci
[2023-10-19 23:52] VITALS: TEMP 98; O2SAT 99
[2023-10-19 23:53] VITALS: BP 185/96
== END 2023-10-19 22:29 | disposition home or self-care (01) ==
LOC: ER 19:18
PROC: 0HQGXZZ Repair Left Hand Skin, External Approach (ICD-10-PCS; principal; 2023-10-19)
DX: S61.412A Laceration without foreign body of left hand, initial encounter (principal); W10.8XXA Fall (on) (from) other stairs and steps, initial encounter; I10 Essential (primary) hypertension; I48.91 Unspecified atrial fibrillation
CPT/HCPCS: 96372; 99284

== ENCOUNTER 2025-03-03 17:00 | Emergency (ER) | payer OTHER ==
--- NOTE | 2025-03-03 17:39 | RAD REPORT ---
EXAM: CT brain without contrast HISTORY: TRAUMA COMPARISON: None TECHNIQUE: Multiple contiguous axial images were obtained and a CT of the brain without contrast. Sag ittal and coronal reformats were performed. FINDINGS: No evidence of hydrocephalus, intracranial hemorrhage, or extra-axial fluid collection. The brain is normal in morphology. The calvarium is intact. Multifocal scalp swelling and hematomas. Small subgaleal left frontal lipoma . Multifocal moderate inflammatory mucosal thickening. Mastoid air cells are essentially clear. IMPRESSION: No evidence of acute intracranial abnormality. Soft tissue findings as above. EXAM: CT of the cervical spine without contrast HISTORY: TRAUMA COMPARISON: None TECHNIQUE: Multiple contiguous axial images were obtained in a CT of the cervical spine without contr ast. Sagittal and coronal reformats were performed. FINDINGS: The vertebral bodies demonstrate normal height and alignment. No evidence of acute fracture or subluxation.. No degenerative changes are present. No prevertebral soft tissue swelling is seen. The posterior facets are well aligned. Normal alignment of the skull base with the cervical spine is seen. The lung apices are unremarkable. IMPRESSION: No evidence of acute osseous abnormality of the cervical spine.
[2025-03-03 17:48] LABS: Absolute Basophils 0.1 K/uL (0-0.5); Absolute Eosinophils 0.4 K/uL (0-0.5); Absolute Lymphocytes (CBC) 1.3 K/uL (0.7-4.9); Absolute Monocytes 0.5 K/uL (0.1-1.3); Absolute Neutrophil 2.1 K/uL (1.8-8.0); Basophils % 1.2 % (0-1.3); Eosinophils % 9.6 % (0-4.4); Hematocrit 26.5 % (39.6-49.0); Hemoglobin 9.7 g/dL (13.6-17.9); Lymphocytes % 30.6 % (15.3-44.8); MCH 34.6 pg (27.0-35.0); MCHC 36.7 g/dL (32.0-36.0); MCV 94.4 fL (80-100); MPV 7.2 fL (7.6-11.3); Monocytes % 11.1 % (3.3-12.3); Neutrophils % 47.5 % (41.7-73.7); Nucleated Red Blood Cells % 0.2 % (0-0); Platelets 141 thou/uL (152-406); RBC Red Blood Cell Count 2.81 M/uL (4.33-5.43); Red Cell Distribution Width 12.6 % (12.1-15.2)
[2025-03-03 17:58] LABS: PTT, Activated Partial Thromb 35.7 SECONDS (27.2-37.4); Protime INR 1.62
[2025-03-03 18:13] LABS: Albumin 2.5 g/dL (3.4-5.0); Albumin/Globulin Ratio 1.1 (1.1-1.8); Anion Gap 14.2 mEq/L (5.0-15.0); Bilirubin Direct 0.3 mg/dL (0-0.2); Bilirubin Indirect, Calculated 0.4 mg/dL (0.2-0.8); Bilirubin Total 0.7 mg/dL (0.2-1.0); Globulin 2.3 g/dL (2.3-3.5); Magnesium 1.5 mg/dL (1.6-2.4); Potassium 3.2 mEq/L (3.5-5.1); Protein, Total 4.8 g/dL (6.4-8.2); Troponin High Sensitivity 6.6 pg/mL (<58.9)
[2025-03-03] MEDS ORDERED: THIAMINE 200 MG/2 ML INJ ONE (18:50)
[2025-03-03] MEDS ORDERED: POTASSIUM CL SA 10 MEQ TAB PO ONE (18:51)
[2025-03-03] MEDS ORDERED: MULTIVITAMINS 10 ML VIAL (INJ) IV ONE (18:51)
[2025-03-03] MEDS ORDERED: FOLIC ACID 5 MG/ML VIAL ONE (18:52)
[2025-03-03] MEDS ORDERED: NA CHLORIDE 0.9% 1,000 ML ONE (18:52)
--- NOTE | 2025-03-03 19:42 | RAD REPORT ---
EXAMINATION: ONE VIEW CHEST XR CLINICAL INDICATION: Male, 84 years old.,TRAUMA TECHNIQUE: Frontal chest projection is submitted. Examination is limited by patient positioning and t echnique. COMPARISON: 04/21/2019 FINDINGS: The lungs are well inflated and clear. No pneumothorax or sizable effusion. The heart is normal in s ize. Mediastinal contours are unremarkable. IMPRESSION: No acute intrathoracic abnormalities.
[2025-03-03 22:44] LABS: Specific Gravity 1.007 (1.005-1.030); Sqamous Epithelial None Seen /HPF (None Seen); Urine Bacteria <20 /HPF (<20); Urine Bilirubin NEGATIVE (Negative); Urine Blood Trace (Negative); Urine Clarity Turbid (Clear); Urine Color Light-Yellow (Yellow); Urine Crystals Unidentified Few /HPF (None Seen); Urine Culture Reflex Order NOT NEEDED; Urine Glucose NEGATIVE (Negative); Urine Ketones TRACE (Negative); Urine Microscopic Reflex YN ORDER UMIC; Urine Mucus Slight /HPF (None Seen); Urine Nitrite NEGATIVE (Negative); Urine Protein NEGATIVE (Negative); Urine RBC <5 /HPF (None Seen); Urine Urobilinogen Normal (Normal); Urine WBC <5 /HPF (<5); Urine pH 5.5 (5.0-7.0)
[2025-03-03 22:51] LABS: Barbiturates NEGATIVE (NEGATIVE); Benzodiazepines NEGATIVE (NEGATIVE); Cocaine NEGATIVE (NEGATIVE); METHAMPHETAM NEGATIVE (NEGATIVE); Methadone NEGATIVE (NEGATIVE); Opiates NEGATIVE (NEGATIVE); Phencyclidine NEGATIVE (NEGATIVE); THC Cannibis NEGATIVE (NEGATIVE)
--- NOTE | 2025-03-03 23:04 | EDPHYS ---
Physician Documentation [facility] Name: Konstantin Hoskins Age: 84 yrs Sex: Male : 1940 Arrival Date: 03/03/2025 Time: 17:00 Bed 5 Private MD: ED Physician HPI: 03/03 18:10 This 84 yrs old Male presents to ER via EMS with complaints of Laceration To dr5 Head, Fall Injury. 18:10 The patient has a laceration related to: falling from a standing position, occurred dr5 outdoors. Patient is an 84 year old male chronic alcohol drinker coming in with fall to back of head with positive loss of consciousness. Daughter in law at bedside with patient's son. They report he drinks approximately 18 beers a day and today he had 12. Patient has hx of a-fib, HTN, dementia, alcoholism, and prostate issue. Patient currently on 5mg eliquis daily. . Historical: - Allergies: 17:07 No Known Allergies; bp - PMHx: 17:07 a fib; a fib; Hypertension; mild dementia; prostate problem-catheter; Alcoholism; bp - Immunization history:: Adult Immunizations unknown. - Infectious Disease History:: Denies. - Social history:: Smoking status: Patient denies any tobacco usage or history of. ROS: 18:10 Constitutional: as per hpi dr5 Exam: 18:10 Constitutional: This is a well developed, well nourished patient who is awake, alert, dr5 and in no acute distress. Head/Face: Normocephalic, atraumatic. Neck: Trachea midline, no thyromegaly or masses palpated, and no cervical lymphadenopathy. Supple, full range of motion without nuchal rigidity, or vertebral point tenderness. No Meningismus. Chest/axilla: Normal chest wall appearance and motion. Nontender with no deformity. No lesions are appreciated. Cardiovascular: Regular rate and rhythm with a normal S1 and S2. Normal PMI, no JVD. No pulse deficits. Respiratory: Lungs have equal breath sounds bilaterally, clear to auscultation. No rales, rhonchi or wheezes noted. No increased work of breathing, no retractions or nasal flaring. Back: No spinal tenderness. No costovertebral tenderness. Full range of motion. MS/ Extremity: Pulses equal, no cyanosis. Neurovascular intact. Full, normal range of motion. Neuro: Awake and alert, GCS 15, oriented to person, place, time, and situation. Cranial nerves II-XII grossly intact. Motor strength 5/5 in all extremities. Sensory grossly intact. Cerebellar exam normal. Normal gait. 18:10 Skin: injury, laceration(s), the wound is approximately 2 cm(s), with a depth of 1 cm(s), of the right parietal area, Vital Signs: 17:05 BP 120 / 67; Pulse 70; Resp 16; Temp 98; Pulse Ox 95% ; bp 19:19 BP 110 / 50; Pulse 56; Resp 15; Temp 98; Pulse Ox 95% ; Pain 0/10; bm8 22:12 BP 119 / 64; Pulse 80; Resp 17; Temp 98; Pulse Ox 100% ; Pain 0/10; bm8 19:19 Pain Scale: Adult bm8 22:12 Pain Scale: Adult bm8 [place] Coma Score: 19:19 Eye Response: spontaneous(4). Motor Response: obeys commands(6). Verbal Response: bm8 oriented(5). Total: 15. 22:12 Eye Response: spontaneous(4). Motor Response: obeys commands(6). Verbal Response: bm8 oriented(5). Total: 15. Procedures: 18:10 Cervical collar removed, at March 03, 2025 at 18:00. dr5 Laceration: 18:10 Wound Repair of 2cm ( 0.8in ) subcutaneous laceration to right parietal area. Linear dr5 shaped.. Distal neuro/vascular/tendon intact. Wound prep: Extensive cleansing by me. Skin closed with 3 Cathy Cathy using staple gun. Dressed with bandaid. Patient tolerated well. MDM: 17:31 Medical Screening Exam initiated dr5 18:10 ED course: Patient was sent straight to CT scan upon arrival in fear of ICH.. dr5 03/03 17:08 Order name: Basic Metabolic Panel; Complete Time: 18:18 dr5 03/03 17:08 Order name: CBC with Diff; Complete Time: 17:56 dr5 03/03 17:08 Order name: Hepatic Function; Complete Time: 18:18 dr5 03/03 17:08 Order name: Magnesium; Complete Time: 18:18 dr5 03/03 17:08 Order name: Protime (+inr); Complete Time: 17:58 dr5 03/03 17:08 Order name: Ptt, Activated; Complete Time: 17:58 [facility] 03/03 17:08 Order name: Troponin High Sensitivity; Complete Time: 18:18 [facility] 03/03 17:08 Order name: CT Head C Spine; Complete Time: 17:41 [facility] 03/03 17:08 Order name: Chest Single View XRAY; Complete Time: 19:49 [facility] 03/03 17:08 Order name: IV Saline Lock; Complete Time: 17:42 [facility] 03/03 17:08 Order name: Labs collected and sent; Complete Time: 17:42 [facility] 03/03 17:08 Order name: NPO; Complete Time: 17:42 [facility] 03/03 17:08 Order name: O2 Per Protocol; Complete Time: 17:42 [facility] 03/03 17:08 Order name: O2 Sat Monitoring; Complete Time: 17:42 [facility] 03/03 17:08 Order name: ETOH Level; Complete Time: 18:18 [facility] 03/03 17:08 Order name: Urinalysis w/ reflexes; Complete Time: 23:03 [facility] 03/03 17:08 Order name: UDS; Complete Time: 23:03 dr5 Administered Medications: 19:01 Drug: Potassium Chloride PO 40 mEq PO once Route: PO; bp 22:18 Follow up: Response: No adverse reaction bm8 19:18 Drug: Banana Bag - (Multivitamin IV 1 amp, NS 0.9% IV 1000 ml, Thiamine IV 100 mg, bm8 foLIC Acid IVPB 1 mg) IV at calculated rate once Route: IV; Rate: calculated rate; Site: right forearm; 22:18 Follow up: Response: No adverse reaction; IV Status: Completed infusion bm8 Disposition Summary: 03/03/25 23:03 Discharge Ordered Notes: Location: Home dr5 Condition: Stable dr5 Diagnosis - Alcohol abuse dr5 - Unspecified injury of head, initial encounter dr5 Followup: dr5 - With: Emergency Department - When: As needed - Reason: Worsening of condition Followup: dr5 - With: Private Physician - When: 1 - 2 days - Reason: Recheck today's complaints, Continuance of care, Re-evaluation by your physician Discharge Instructions: - Discharge Summary Sheet dr5 - Head Injury, Adult dr5 Forms: - Medication Reconciliation Form dr5 - Patient Portal Instructions dr5 - Leadership Thank You Letter dr5 Signatures: Dispatcher [employer] Earnest Ochoa RN RN bp Justin Jiménez RN RN bm8 Huey Milton, UNDERGROUND ELECTRICIAN-C UNDERGROUND ELECTRICIAN-Cdr5 Corrections: (The following items were deleted from the chart) 17:08 17:08 BASIC METABOLIC PANEL+C.LAB.BRZ ordered. EDMS EDMS 17: 17:08 CBC+H.LAB.BRZ ordered. EDMS EDMS 17: 17:08 HEPATIC FUNCTION+C.LAB.BRZ ordered. EDMS EDMS 17: 17:08 MAGNESIUM+C.LAB.BRZ ordered. EDMS EDMS 17: 17:08 PROTIME (+INR)+COAG.LAB.BRZ ordered. EDMS EDMS 17: 17:08 PTT, ACTIVATED+COAG.LAB.BRZ ordered. EDMS EDMS 17: 17:08 Troponin High Sensitivity+C.LAB.BRZ ordered. EDMS EDMS 17:08 17:08 ETHANOL+C.LAB.BRZ ordered. EDMS EDMS 17: 17:08 Urinalysis+U.LAB.BRZ ordered. EDMS EDMS 17: 17:08 URINE DRUG SCREEN+UC.LAB.BRZ ordered. EDMS EDMS 17:08 17:08 Chest Single View+RAD.RAD.BRZ ordered. EDMS EDMS
--- NOTE | 2025-03-03 23:04 | ER ---
Nurse's Notes [facility] Name: Konstantin Hoskins Age: 84 yrs Sex: Male : 1940 Arrival Date: 03/03/2025 Time: 17:00 Bed 5 Private MD: Diagnosis: Alcohol abuse;Unspecified injury of head, initial encounter Presentation: 03/03 17:05 Chief complaint: EMS states: MECHANICAL FALL WALKING HOME FROM BAR, DAUGHTER STATES +18 bp BEERS PER DAY. Coronavirus screen: At this time, the client does not indicate any symptoms associated with coronavirus-19. Ebola Screen: No symptoms or risks identified at this time. Initial Sepsis Screen: Does the patient meet any 2 criteria? No. Patient's initial sepsis screen is negative. Does the patient have a suspected source of infection? No. Patient's initial sepsis screen is negative. Risk Assessment: Do you want to hurt yourself or someone else? Patient reports no desire to harm self or others. Onset of symptoms is unknown. Care prior to arrival: IV initiated. 20 GA, in the right antecubital area. 17:05 Method Of Arrival: EMS: [facility] bp 17:05 Acuity: TIFFANY 3 bp Triage Assessment: 17:07 General: Appears in no apparent distress. unkempt, Behavior is calm, cooperative, bp appropriate for age. Pain: Complains of pain in head. EENT: No deficits noted. Neuro: Level of Consciousness is awake, alert, obeys commands, Oriented to Appropriate for age. Cardiovascular: No deficits noted. Respiratory: No deficits noted. GI: No signs and/or symptoms were reported involving the gastrointestinal system. : No signs and/or symptoms were reported regarding the genitourinary system. Derm: No deficits noted. Musculoskeletal: No deficits noted. Injury Description: Laceration sustained to head. Historical: - Allergies: 17:07 No Known Allergies; bp - PMHx: 17:07 a fib; a fib; Hypertension; mild dementia; prostate problem-catheter; Alcoholism; bp - Immunization history:: Adult Immunizations unknown. - Infectious Disease History:: Denies. - Social history:: Smoking status: Patient denies any tobacco usage or history of. Screenin:08 [facility] ED Fall Risk Assessment (Adult) History of falling in the last 3 months, bp including since admission Yes- physiologic fall (2 pts) Confusion or Disorientation No (0 pts) Intoxicated or Sedated Yes (3 pts) Impaired Gait No (0 pts) Mobility Assist Device Used No (0 pt) Altered Elimination No (0 pt) Score/Fall Risk Level 3 or more points = High Risk Oriented to surroundings, Maintained a safe environment. Abuse screen: Denies threats or abuse. Denies injuries from another. Nutritional screening: No deficits noted. Tuberculosis screening: No symptoms or risk factors identified. Assessment: 17:08 General: Appears in no apparent distress. unkempt, Behavior is calm, cooperative, bp appropriate for age. 19:19 Reassessment: Patient appears in no apparent distress at this time. Patient and/or bm8 family updated on plan of care and expected duration. Pain level reassessed. pt is drowsy and in bed, resp irations are even unlabored at this time with symmetrical rise and fall. 22:12 Reassessment: pt escorted to restroom for urine sample. pt was able to ambulate under bm8 own power with steady gait. urine sample provided. Vital Signs: 17:05 BP 120 / 67; Pulse 70; Resp 16; Temp 98; Pulse Ox 95% ; bp 19:19 BP 110 / 50; Pulse 56; Resp 15; Temp 98; Pulse Ox 95% ; Pain 0/10; bm8 22:12 BP 119 / 64; Pulse 80; Resp 17; Temp 98; Pulse Ox 100% ; Pain 0/10; bm8 19:19 Pain Scale: Adult bm8 22:12 Pain Scale: Adult bm8 Robby Coma Score: 19:19 Eye Response: spontaneous(4). Motor Response: obeys commands(6). Verbal Response: bm8 oriented(5). Total: 15. 22:12 Eye Response: spontaneous(4). Motor Response: obeys commands(6). Verbal Response: bm8 oriented(5). Total: 15. ED Course: 17:01 Patient arrived in ED. eb 17:03 Huey Milton FNP-C [facility]. dr5 17:05 Earnest Baldwin, RN is Primary Nurse. bp 17:07 Triage completed. bp 17:07 Arm band placed on. bp 17:08 Patient has correct armband on for positive identification. bp 17:08 Maintain EMS IV. Dressing intact. Good blood return noted. Site clean \T\ dry. Gauge \T\ bp site: 20 RAC. Flushed with 10 mL NS. 17:17 CT Head C Spine In Process Unspecified. EDMS 19:03 Chest Single View XRAY In Process Unspecified. EDMS 19:19 Client placed on continuous cardiac and pulse oximetry monitoring. NIBP monitoring bm8 applied. Pulse ox on. NIBP on. Door closed. Noise minimized. Warm blanket given. Pillow given. Verbal reassurance given. 19:19 No provider procedures requiring assistance completed. Inserted saline lock: 20 gauge bm8 in right forearm, using aseptic technique. Flushed with 10 mL NS. 22:15 Urine collected: clean catch specimen, clear. bm8 Administered Medications: 19:01 Drug: Potassium Chloride PO 40 mEq PO once Route: PO; bp 22:18 Follow up: Response: No adverse reaction bm8 19:18 Drug: Banana Bag - (Multivitamin IV 1 amp, NS 0.9% IV 1000 ml, Thiamine IV 100 mg, bm8 foLIC Acid IVPB 1 mg) IV at calculated rate once Route: IV; Rate: calculated rate; Site: right forearm; 22:18 Follow up: Response: No adverse reaction; IV Status: Completed infusion bm8 Medication: 17:08 VIS not applicable for this client. bp Outcome: 23:03 Discharge ordered by . dr5 Signatures: Dispatcher [employer] Earnest Ochoa, RN RN Jessy Martinez Brad RN RN bm8 Huey Milton, MARGIN ANALYST-C MARGIN ANALYST-Cdr5
[2025-03-03 23:24] VITALS: TEMP 98
[2025-03-03 23:42] VITALS: BP 110/57; O2SAT 97
== END 2025-03-03 23:15 | disposition home or self-care (01) ==
LOC: ER 17:00
DX: S01.01XA Laceration without foreign body of scalp, initial encounter (principal); F10.20 Alcohol dependence, uncomplicated; W18.30XA Fall on same level, unspecified, initial encounter; I10 Essential (primary) hypertension; I48.91 Unspecified atrial fibrillation; Z79.01 Long term (current) use of anticoagulants
CPT/HCPCS: 96365; 85025; 81001; 80048; 36415; 83735; 85610; 80076; 85730; 84484; 80307; 70450; 72125; 71045; 99284; 96366; 12031; 82077; J3411; J7030

== ENCOUNTER 2025-03-06 00:04 | Emergency (ER) | payer OTHER ==
[2025-03-06 01:33] LABS: Absolute Basophils 0.1 K/uL (0-0.5); Absolute Eosinophils 0.1 K/uL (0-0.5); Absolute Lymphocytes (CBC) 0.5 K/uL (0.7-4.9); Absolute Monocytes 1.1 K/uL (0.1-1.3); Basophils % 0.8 % (0-1.3); Hematocrit 28.3 % (39.6-49.0); Hemoglobin 10.3 g/dL (13.6-17.9); Lymphocytes % 8.2 % (15.3-44.8); MCH 34.6 pg (27.0-35.0); MCHC 36.3 g/dL (32.0-36.0); MCV 95.4 fL (80-100); MPV 8.2 fL (7.6-11.3); Monocytes % 15.9 % (3.3-12.3); Neutrophils % 74.1 % (41.7-73.7); Platelets 125 thou/uL (152-406); RBC Red Blood Cell Count 2.96 M/uL (4.33-5.43); Red Cell Distribution Width 12.7 % (12.1-15.2)
[2025-03-06 01:36] LABS: PT Prothrombin Time 18.6 SECONDS (10-13.0); Protime INR 1.67
[2025-03-06 01:49] LABS: Albumin 3.3 g/dL (3.4-5.0); Anion Gap 13.4 mEq/L (5.0-15.0); Bilirubin Direct 0.5 mg/dL (0-0.2); Bilirubin Indirect, Calculated 0.6 mg/dL (0.2-0.8); Bilirubin Total 1.1 mg/dL (0.2-1.0); Globulin 3.2 g/dL (2.3-3.5); Magnesium 1.5 mg/dL (1.6-2.4); Potassium 3.4 mEq/L (3.5-5.1); Protein, Total 6.5 g/dL (6.4-8.2); Troponin High Sensitivity 7.1 pg/mL (<58.9)
[2025-03-06] MEDS ORDERED: POTASSIUM 25 MEQ EFFERV TAB ONE (02:53)
[2025-03-06] MEDS ORDERED: THIAMINE 200 MG/2 ML INJ ONE (02:53)
[2025-03-06] MEDS ORDERED: FAMOTIDINE 20 MG/2 ML VIAL IV ONE (02:53)
[2025-03-06] MEDS ORDERED: Magnesium Sulfate 2gm IVPB 0 G/0 ML BAG IV ONE (02:53)
[2025-03-06] MEDS ORDERED: FOLIC ACID 5 MG/ML VIAL ONE (02:55)
[2025-03-06] MEDS ORDERED: MULTIVITAMINS 10 ML VIAL (INJ) IV ONE (02:55)
[2025-03-06] MEDS ORDERED: NA CHLORIDE 0.9% 1,000 ML ONE (02:56)
--- NOTE | 2025-03-06 03:45 | ER ---
Nurse's Notes [facility] Name: Konstantin Hoskins Age: 84 yrs Sex: Male : 1940 Arrival Date: 03/06/2025 Time: 00:04 Bed 6 Private MD: Diagnosis: Fall on same level, unspecified;Unspecified injury of head, initial encounter;Alcohol abuse;Hypomagnesemia;Hypokalemia Presentation: 03/06 00:36 Chief complaint: Chief complaint: Patient states: WALKING FROM GARAGE AND PASSED OUT vc1 FALLING AND HITTING HEAD. 00:38 Care prior to arrival: None. Mechanism of Injury: Fall from standing position. Trauma vc1 event details: Injury occurred in the [facility]. Activity prior to arrival: loss of consciousness. 00:38 Acuity: TIFFANY 2 vc1 00:38 Method Of Arrival: Wheelchair vc1 01:26 Coronavirus screen: Client denies travel out of the [place] in the last 14 days. At this vc1 time, the client does not indicate any symptoms associated with coronavirus-19. Ebola Screen: Patient negative for fever greater than or equal to 101.5 degrees Fahrenheit, and additional compatible Ebola Virus Disease symptoms Patient denies exposure to infectious person. Patient denies travel to an Ebola-affected area in the 21 days before illness onset. No symptoms or risks identified at this time. Initial Sepsis Screen: Does the patient meet any 2 criteria? No. Patient's initial sepsis screen is negative. Does the patient have a suspected source of infection? No. Patient's initial sepsis screen is negative. Risk Assessment: Do you want to hurt yourself or someone else?. Onset of symptoms was March 06, 2025. Trauma Activation: Alert Physician: ED Physician; Name: DR. MCKINLEY; Notified At: ; Arrived At: Physician: General Surgeon; Name: ; Notified At: ; Arrived At: Physician: Radiology; Name: ; Notified At: ; Arrived At: Physician: Respiratory; Name: ; Notified At: ; Arrived At: Physician: Lab; Name: ; Notified At: ; Arrived At: Historical: - Allergies: 00:42 No Known Allergies; vc1 - PMHx: 00:42 a fib; Alcoholism; Hypertension; mild dementia; prostate problem-catheter; vc1 - PSHx: 00:42 None; vc1 - Immunization history:: Adult Immunizations unknown. - Infectious Disease History:: Denies. - Family history:: not pertinent. - Social history:: Smoking status: Patient/guardian denies using tobacco, but has a distant history of tobacco abuse, Patient uses alcohol, on a daily basis. 18 PACK. Screenin:50 [place] ED Fall Risk Assessment (Adult) History of falling in the last 3 months, al5 including since admission Yes- single mechanical fall (1 pt) Confusion or Disorientation No (0 pts) Intoxicated or Sedated Yes (3 pts) Impaired Gait No (0 pts) Mobility Assist Device Used No (0 pt) Altered Elimination No (0 pt) Score/Fall Risk Level 3 or more points = High Risk Oriented to surroundings, Maintained a safe environment, Hourly rounding (assess needs \T\ fall precautionary measures) done, Utilized family, sitter, or virtual director dance as indicated. 05:00 Abuse screen: Denies threats or abuse. Denies injuries from another. Nutritional al5 screening: No deficits noted. Tuberculosis screening: No symptoms or risk factors identified. Assessment: 02:49 Reassessment: Patient appears in no apparent distress at this time. No changes from al5 previously documented assessment. Patient and/or family updated on plan of care and expected duration. Pain level reassessed. Patient is alert, oriented x 3, equal unlabored respirations, skin warm/dry/pink. 05:00 Reassessment: Patient appears in no apparent distress at this time. Patient and/or al5 family updated on plan of care and expected duration. Pain level reassessed. Patient is alert, oriented x 3, equal unlabored respirations, skin warm/dry/pink. Patient states feeling better. Vital Signs: 01:05 BP 141 / 65; Pulse 77; Resp 17 S; Pulse Ox 99% on R/A; ha1 01:26 BP 128 / 50; Pulse 81; Resp 18; Temp 98.3; Pulse Ox 99% ; vc1 02:48 BP 140 / 66; Pulse 76; Resp 18; Pulse Ox 99% ; al5 05:00 BP 147 / 80; Pulse 77; Resp 16; Pulse Ox 99% ; al5 Robby Coma Score: 00:42 Eye Response: spontaneous(4). Motor Response: obeys commands(6). Verbal Response: gregorio oriented(5). Total: 15. 02:50 Eye Response: spontaneous(4). Motor Response: obeys commands(6). Verbal Response: al5 oriented(5). Total: 15. Trauma Score (Adult): 02:50 Eye Response: spontaneous(1); Verbal Response: oriented(1); Motor Response: obeys al5 commands(2); Systolic BP: > 89 mm Hg(4); Respiratory Rate: 10 to 29 per min(4); [place] Score: 15; Trauma Score: 12 ED Course: 00:10 Patient arrived in ED. gm2 00:34 Yadiel Mckinley MD is Attending Physician. gregorio 00:41 Ana Leavitt, RONNY is Primary Nurse. al5 00:42 Triage completed. vc1 00:42 Arm band placed on right wrist. vc1 01:04 Basic Metabolic Panel Sent. ha1 01:04 CBC with Diff Sent. ha1 01:04 LFT's Sent. ha1 01:04 Magnesium Sent. ha1 01:04 NT PRO-BNP Sent. ha1 01:04 PT-INR Sent. ha1 01:04 Troponin HS Sent. ha1 01:04 Inserted saline lock: 20 gauge in right antecubital area, using aseptic technique. ha1 Blood collected. Flushed with 10 mL NS. 01:16 XRAY Chest (1 view) In Process Unspecified. EDMS 01:29 CT Head C Spine In Process Unspecified. EDMS 01:29 CT Chest Abdomen Pelvis W/O Contrast In Process Unspecified. EDMS 02:10 EKG done, by fire management technician. af3 02:50 No provider procedures requiring assistance completed. al5 02:50 Patient has correct armband on for positive identification. Bed in low position. Call al5 light in reach. Side rails up X2. Provided Education on: plan of care. 03:45 Connor Robbins MD is Referral Physician. cp 05:06 Connor Robbins MD is Referral Physician. gregorio 05:12 IV discontinued, intact, bleeding controlled, No redness/swelling at site. Pressure rk3 dressing applied. Administered Medications: 02:49 Drug: Potassium PO Effervescent Tablet 25 mEq PO once; dissolve in 4 ounces of water or ha1 juice Route: PO; 05:38 Follow up: Response: No adverse reaction al5 04:03 Not Given (Patient Refused): [id number] mg IV at per protocol once al5 04:03 Not Given (Patient Refused): Banana Bag - (ns 0.9% 1000 ml, folic acid ivpb 1 mg, al5 [id number] mg, multivitamin1 amp) IV at 500 ml/hr once 04:03 Not Given (Patient Refused): [id number] mg IVP once; dilute with 10 mL 0.9% NaCl; al5 give over 2 minutes 04:03 Not Given (Patient Refused): magnesium sulfate2 grams IVPB once over 1 hrs al5 Medication: 05:00 VIS not applicable for this client. al5 Intake: 02:50 n/a al5 Outcome: 03:45 Discharge ordered by . mora 05:06 Discharge ordered by . gregorio 05:15 Discharge instructions given to patient, Instructed on discharge instructions, follow al5 up and referral plans. medication usage, Demonstrated understanding of instructions, follow-up care, medications, Prescriptions given X 2, 05:15 Discharged to home ambulatory, with family, al5 05:15 Condition: good 05:15 Patient's length of stay in the Emergency Department was greater than [address] scan al5 resultsPatient's length of stay extended due to 05:37 Patient left the ED. al5 Signatures: Dispatcher [employer] EDMS Yadiel Mckinley MD MD cha Page, Corey, PA PA Madina Mantilla RN RN vc1 Mona Sanford RN RN ha1 Merna Villa 2 Ana Leavitt RN RN al5 Leesa Chua af3 Woo [place] rk3 Corrections: (The following items were deleted from the chart) 01:35 00:36 Chief complaint: vc1 vc1
--- NOTE | 2025-03-06 03:45 | EDPHYS ---
Physician Documentation [facility] Name: Konstantin Hoskins Age: 84 yrs Sex: Male : 1940 Arrival Date: 03/06/2025 Time: 00:04 Bed 6 Private MD: ED Physician Yadiel Bear HPI: 03/06 00:42 This 84 yrs old Male presents to ER via Unassigned with complaints of Fall gregorio Injury. 00:42 Details of fall: The patient fell from an upright position, while walking. Onset: The gregorio symptoms/episode began/occurred just prior to arrival. Associated injuries: The patient sustained injury to the head. Severity of symptoms: At their worst the symptoms were mild, moderate, in the emergency department the symptoms are unchanged. The patient has experienced similar episodes in the past. Historical: - Allergies: 00:42 No Known Allergies; vc1 - PMHx: 00:42 a fib; Alcoholism; Hypertension; mild dementia; prostate problem-catheter; vc1 - PSHx: 00:42 None; vc1 - Immunization history:: Adult Immunizations unknown. - Infectious Disease History:: Denies. - Family history:: not pertinent. - Social history:: Smoking status: Patient/guardian denies using tobacco, but has a distant history of tobacco abuse, Patient uses alcohol, on a daily basis. 18 PACK. ROS: 00:42 Constitutional: Negative for fever, chills, and weight loss, Eyes: Negative for injury, gregorio pain, redness, and discharge, ENT: Negative for injury, pain, and discharge, Neck: Negative for injury, pain, and swelling, Cardiovascular: Negative for chest pain, palpitations, and edema, Respiratory: Negative for shortness of breath, cough, wheezing, and pleuritic chest pain, Abdomen/GI: Negative for abdominal pain, nausea, vomiting, diarrhea, and constipation, Back: Negative for injury and pain, : Negative for injury, bleeding, discharge, and swelling, MS/Extremity: Negative for injury and deformity, Skin: Negative for injury, rash, and discoloration, Psych: Negative for depression, anxiety, suicide ideation, homicidal ideation, and hallucinations, Allergy/Immunology: Negative for hives, rash, and allergies, Endocrine: Negative for neck swelling, polydipsia, polyuria, polyphagia, and marked weight changes, Hematologic/Lymphatic: Negative for swollen nodes, abnormal bleeding, and unusual bruising, 00:42 Neuro: Positive for altered mental status, dizziness, headache, near syncope, weakness, Exam: 00:42 Constitutional: This is a well developed, well nourished patient who is awake, alert, gregorio and in no acute distress. Eyes: Pupils equal round and reactive to light, extra-ocular motions intact. Lids and lashes normal. Conjunctiva and sclera are non-icteric and not injected. Cornea within normal limits. Periorbital areas with no swelling, redness, or edema. ENT: Nares patent. No nasal discharge, no septal abnormalities noted. Tympanic membranes are normal and external auditory canals are clear. Oropharynx with no redness, swelling, or masses, exudates, or evidence of obstruction, uvula midline. Mucous membranes moist. Neck: Trachea midline, no thyromegaly or masses palpated, and no cervical lymphadenopathy. Supple, full range of motion without nuchal rigidity, or vertebral point tenderness. No Meningismus. Chest/axilla: Normal chest wall appearance and motion. Nontender with no deformity. No lesions are appreciated. Cardiovascular: Regular rate and rhythm with a normal S1 and S2. No gallops, murmurs, or rubs. Normal PMI, no JVD. No pulse deficits. Respiratory: Lungs have equal breath sounds bilaterally, clear to auscultation and percussion. No rales, rhonchi or wheezes noted. No increased work of breathing, no retractions or nasal flaring. Abdomen/GI: Soft, non-tender, with normal bowel sounds. No distension or tympany. No guarding or rebound. No evidence of tenderness throughout. Back: No spinal tenderness. No costovertebral tenderness. Full range of motion. Male : Normal genitalia with no discharge or lesions. Skin: Warm, dry with normal turgor. Normal color with no rashes, no lesions, and no evidence of cellulitis. MS/ Extremity: Pulses equal, no cyanosis. Neurovascular intact. Full, normal range of motion., bilateral aka Psych: Awake, alert, with orientation to person, place and time. Behavior, mood, and affect are within normal limits. 00:42 Head/face: Noted is contusion, hematoma, swelling, that is moderate, of the forehead, right eye and right uatsdin, 00:42 ECG was reviewed by the Attending Physician. 02:10 ECG was reviewed by the Attending Physician. [facility] Vital Signs: 01:05 BP 141 / 65; Pulse 77; Resp 17 S; Pulse Ox 99% on R/A; ha1 01:26 BP 128 / 50; Pulse 81; Resp 18; Temp 98.3; Pulse Ox 99% ; vc1 02:48 BP 140 / 66; Pulse 76; Resp 18; Pulse Ox 99% ; al5 05:00 BP 147 / 80; Pulse 77; Resp 16; Pulse Ox 99% ; al5 Tracy Coma Score: 00:42 Eye Response: spontaneous(4). Motor Response: obeys commands(6). Verbal Response: gregorio oriented(5). Total: 15. 02:50 Eye Response: spontaneous(4). Motor Response: obeys commands(6). Verbal Response: al5 oriented(5). Total: 15. Trauma Score (Adult): 02:50 Eye Response: spontaneous(1); Verbal Response: oriented(1); Motor Response: obeys al5 commands(2); Systolic BP: > 89 mm Hg(4); Respiratory Rate: 10 to 29 per min(4); Tracy Score: 15; Trauma Score: 12 MDM: 00:34 Medical Screening Exam initiated gregorio 00:46 Differential diagnosis: abrasion, closed head injury, contusion, fracture, laceration, gregorio multiple trauma, sprain, strain. Data reviewed: vital signs, nurses notes, EMS record, lab test result(s), EKG, radiologic studies, CT scan, plain films. Consideration of Admission/Observation Escalation of care including admission/observation considered. I considered the following discharge prescriptions or medication management in the emergency department Medications were administered in the Emergency Department. See MAR. Independent interpretation of the following test(s) in the Emergency Department EKG: See my EKG interpretation above. Test considered but Not performed: MRI: no mri brain. Historians other than the Patient: Daughter/Son: son well informed. Care significantly affected by the following chronic conditions: alcoholic abuse. Counseling: I had a detailed discussion with the patient and/or guardian regarding the historical points, exam findings, and any diagnostic results supporting the discharge/admit diagnosis. 03/06 00:42 Order name: Basic Metabolic Panel; Complete Time: 02:23 [facility] 03/06 00:42 Order name: CBC with Diff; Complete Time: 02:23 [facility] 03/06 00:42 Order name: LFT's; Complete Time: 02:23 [facility] 03/06 00:42 Order name: Magnesium; Complete Time: 02:23 [facility] 03/06 00:42 Order name: NT PRO-BNP; Complete Time: 02:23 [facility] 03/06 00:42 Order name: PT-INR; Complete Time: 02:23 [facility] 03/06 00:42 Order name: Troponin HS; Complete Time: 02:23 [facility] 03/06 00:42 Order name: Lipase; Complete Time: 02:23 [facility] 03/06 02:24 Order name: AMMONIA; Complete Time: 03:28 [facility] 03/06 00:42 Order name: XRAY Chest (1 view) 03/06 00:42 Order name: CT Head C Spine 03/06 00:42 Order name: CT Chest Abdomen Pelvis W/O Contrast 03/06 00:42 Order name: Cardiac monitoring; Complete Time: 02:10 [facility] 03/06 00:42 Order name: EKG - Nurse/Tech; Complete Time: 02:10 [facility] 03/06 00:42 Order name: IV Saline Lock; Complete Time: 01:04 [facility] 03/06 00:42 Order name: Labs collected and sent; Complete Time: 01:04 [facility] 03/06 00:42 Order name: O2 Per Protocol; Complete Time: 01:04 [facility] 03/06 00:42 Order name: O2 Sat Monitoring; Complete Time: 01:04 [facility] EC:10 Rate is 80 beats/min. Rhythm is regular. QRS [place] is Normal. CA interval is normal. QRS gregorio interval is normal. QT interval is normal. No Q waves. T waves are Normal. No ST changes noted. Interpreted by me. Reviewed by me. Administered Medications: 02:49 Drug: Potassium PO Effervescent Tablet 25 mEq PO once; dissolve in 4 ounces of water or ha1 juice Route: PO; 05:38 Follow up: Response: No adverse reaction al5 04:03 Not Given (Patient Refused): [id number] mg IV at per protocol once al5 04:03 Not Given (Patient Refused): Banana Bag - (ns 0.9% 1000 ml, folic acid ivpb 1 mg, al5 mg, multivitamin1 amp) IV at 500 ml/hr once 04:03 Not Given (Patient Refused): [id number] mg IVP once; dilute with 10 mL 0.9% NaCl; al5 give over 2 minutes 04:03 Not Given (Patient Refused): magnesium sulfate2 grams IVPB once over 1 hrs al5 Disposition Summary: 03/06/25 05:06 Discharge Ordered Notes: Location: Home(03/06/25 05:06) gregorio Problem: new(03/06/25 05:06) gregorio Symptoms: have improved(03/06/25 05:06) gregorio Condition: Stable(03/06/25 05:06) gregorio Diagnosis - Fall on same level, unspecified(03/06/25 05:06) gregorio - Unspecified injury of head, initial encounter(03/06/25 05:06) gregorio - Alcohol abuse(03/06/25 05:06) gregorio - Hypomagnesemia(03/06/25 05:06) gregorio - Hypokalemia(03/06/25 05:06) gregorio Followup: gregorio - With: Private Physician - When: 1 - 2 days - Reason: Recheck today's complaints, Continuance of care, Re-evaluation by your physician Followup: gregorio - With: Connor Robbins MD - When: 2 - 3 days - Reason: Recheck today's complaints, Re-evaluation by your physician Discharge Instructions: - Discharge Summary Sheet gregorio - Alcohol Intoxication gregorio - Alcohol Use Disorder gregorio - Potassium Content of Foods gregorio - Head Injury, Adult gregorio - Hypomagnesemia gregorio - Alcohol Abuse and Nutrition gregorio - Fall Prevention in the Home, Adult, [id number] gregorio - Head Injury, Adult, [id number] gregorio - Hypokalemia gregorio - Alcoholic Liver Disease gregorio Forms: - Medication Reconciliation Form gregorio - Antibiotic Education gregorio - Prescription Opioid Use gregorio - Patient Portal Instructions gregorio - Leadership Thank You Letter [facility] Prescriptions: - Protonix 40 mg Oral Tablet - take 1 tablet ORAL route once daily; 30 tablet; Refills: 0, Product Selection gregorio Permitted - Folic Acid 1 mg Oral Tablet - take 1 tablet ORAL route once daily; 30 tablet; Refills: 0, Product Selection gregorio Permitted Signatures: Dispatcher [employer] Yadiel Odell MD MD cha Page, Corey, PA Madina Olivares cp RN RN vc1 Mona Sanford RN RN ha1 Ana Leavitt RN al5 Corrections: (The following items were deleted from the chart) 00:42 00:42 BASIC METABOLIC PANEL+C.LAB.BRZ ordered. EDMS EDMS 00:42 00:42 CBC+H.LAB.BRZ ordered. EDMS EDMS 00:42 00:42 HEPATIC FUNCTION+C.LAB.BRZ ordered. EDMS EDMS 00:42 00:42 MAGNESIUM+C.LAB.BRZ ordered. EDMS EDMS 00:42 00:42 PROBNP+C.LAB.BRZ ordered. EDMS EDMS 00:42 00:42 PROTIME (+INR)+COAG.LAB.BRZ ordered. EDMS EDMS 00:42 00:42 Troponin High Sensitivity+C.LAB.BRZ ordered. EDMS EDMS 00:42 00:42 LIPASE+C.LAB.BRZ ordered. EDMS EDMS 00:42 00:42 Chest Single View+RAD.RAD.BRZ ordered. EDMS EDMS 00:43 00:43 Head C Spine MPR Wo Con+CT.RAD.BRZ ordered. EDMS EDMS 00:43 00:43 Chest Abdomen Pelvis Wo Con+CT.RAD.BRZ ordered. EDMS EDMS 00:43 00:43 Urinalysis+U.LAB.BRZ ordered. EDMS EDMS 03:58 03:45 Home cp cp 03:58 03:45 new cp cp 03:58 03:45 have improved cp cp 03:58 03:45 Stable cp cp 03:58 03:45 Fall on same level, unspecified cp cp 03:58 03:45 Unspecified injury of head, initial encounter cp cp 03:58 03:45 Alcohol abuse cp cp 03:58 03:45 Hypomagnesemia cp cp 03:58 03:45 Hypokalemia cp cp
--- NOTE | 2025-03-06 05:00 | RAD REPORT ---
PROCEDURE: CT Head and Cervical Spine Without Intravenous Contrast CLINICAL INDICATION: The patient is 84 years old and is Male; DIZZINESS Bed Name: 6 TECHNIQUE: Axial computed tomography images of the head/brain and cervical spine without intravenous contrast. Sagittal and coronal reformatted images were created and reviewed. This CT exam was performed using one or more of the following dose reduction techniques: automated exposure control, adjustmen t of the mA and/or kV according to patient size, and/or use of iterative reconstruction technique. COMPARISON: 03/03/2025 CT head and cervical spine FINDINGS: BRAIN: Mild global cerebral atrophy with commensurate sulcal and ventricular enlargement, not great er than expected for patient age. Mild bilateral periventricular and deep white matter microangiopathy changes. No extra-axial fluid collection. No intracranial hemorrhage. No focal almanza-white matter differentiation abnormality. MIDLINE SHIFT: No midline shift. VENTRICLES: See above. SKULL: See below. SINUSES: Unremarkable as visualized. No acute sinusitis. MASTOID AIR CELLS: Unremarkable as visualized. No mastoid effusion. VERTEBRAE: Straightening of the normal lordosis of the cervical spine as the patient is positioned. Appearance is nonspecific and could be positional or seen with muscular strain or spasm. DISCS/SPINAL CANAL/NEURAL FORAMINA: Degenerative fusion of the C2-3 disc space, with severe joint s pace loss in the C5-6 and C6-7 levels. Redemonstrated grade 1 anterolisthesis of C7 on T1. Multilevel bony neuroforaminal narrowing, greatest at the left C4-5 neuroforaminal. No transtentorial herniation. OTHER BONES/JOINTS: Unremarkable as visualized. No fracture of the calvarium or visualized facial bones. SOFT TISSUES: Moderate-sized right frontal scalp contusion with associated cutaneous julia. Partially visualized right cheek soft tissue contusion, which appears new from reference exam . Bilateral ethmoid air cell mucosal thickening. Small left frontal subgaleal lipoma redemonstrated. IMPRESSION: 1. Chronic and senescent changes with no acute intracranial abnormality. 2. Degenerative changes with no acute osseous abnormality of the cervical spine. 3. Moderate-sized right frontal scalp contusion with associated cutaneous julia. 4. Partially visualized right cheek soft tissue contusion, which appears new from reference exam. Electronically signed by: Avel Wyman MD 03/06/2025 04:54 AM CDT Due to temporary technical issues with the PACS/[employer] reporting system, reports are being deidra d by the in-house radiologist without review as a courtesy to ensure prompt reporting the interpreting radiologist is fully responsible for the content of the report. Transcribed Date/Time: 03/06/2025 5:00 AM
--- NOTE | 2025-03-06 05:17 | RAD REPORT ---
EXAM: CT Chest, Abdomen and Pelvis Without Intravenous Contrast CLINICAL HISTORY: The patient is 84 years old and is Male; Pain. TECHNIQUE: Axial computed tomography images of the chest, abdomen and pelvis without intravenous co ntrast. Sagittal and coronal reformatted images were created and reviewed. This CT exam was performed using one or more of the following dose reduction techniques: automated exposure control, adjustment of the mA and/or kV according to patient size, and/or use of iterative reconstruction technique. COMPARISON: XR Chest 03/06/2025, 1:11:06 AM. FINDINGS: CHEST: Lungs: Unremarkable. No mass. No consolidation or ground glass opacities. Pleural space: Unremarkable. No significant effusion. No pneumothorax. Heart: Coronary artery calcifications. Borderline cardiac enlargement without significant pericardial fluid. ABDOMEN: Liver: Unremarkable. Gallbladder and bile ducts: Unremarkable. No calcified stones. No ductal dilation. Pancreas: Unremarkable. No ductal dilation. Spleen: Unremarkable. No splenomegaly. Adrenals: Unremarkable. No mass. Kidneys and ureters: No nephrolithiasis or hydronephrosis. No ureter stone. Stomach and bowel: Colonic diverticulosis. No bowel dilatation or obstruction. No bowel wall thickening. No gastric wall thickening. PELVIS: Appendix: The visualized appendix is normal. No pericecal inflammation to suggest acute appendici tis. Bladder: Bladder diverticula. No bladder calculi. Reproductive: Mild prostate gland enlargement. CHEST, ABDOMEN and PELVIS: Intraperitoneal space: Unremarkable. No significant fluid collection. No free air. Bones/joints: No acute sternal fracture. Degenerative changes in the lower cervical spine and lumbar spine. 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 No acute fracture visualized. No dislocation. Soft tissues: Umbilical hernia containing fat only. No evidence of edema/incarceration. Vasculature: No aortic aneurysm. Aberrant right subclavian artery. Lymph nodes: Unremarkable. No enlarged lymph nodes. IMPRESSION: 1. No acute intrathoracic or intra-abdominal process identified. 2. Colonic diverticulosis. 3. Bladder diverticula. No bladder calculi. 4. Mild prostate gland enlargement. 5. Multiple non-acute findings as above. Electronically signed by: Shani Kessler MD 03/06/2025 05:07 AM CDT RP V2 Due to temporary technical issues with the PACS/[employer] reporting system, reports are being deidra d by the in-house radiologist without review as a courtesy to ensure prompt reporting the interpreting radiologist is fully responsible for the content of the report. Transcribed Date/Time: 03/06/2025 5:16 AM
--- NOTE | 2025-03-06 05:51 | RAD REPORT ---
EXAM: XR Chest, 1 View CLINICAL HISTORY: The patient is 84 years old and is Male; COUGH TECHNIQUE: Frontal view of the chest. COMPARISON: No relevant prior studies available. FINDINGS: Lungs: Unremarkable. No consolidation. Pleural space: Unremarkable. No pneumothorax. Heart: Unremarkable. Mediastinum: Unremarkable. Normal mediastinal contour. Bones/joints: No acute findings. IMPRESSION: No acute findings in the chest. Electronically signed by: Casey Trujillo MD 03/06/2025 04:06 AM CDT RP 8 Due to temporary technical issues with the PACS/[employer] reporting system, reports are being deidra d by the in-house radiologist without review as a courtesy to ensure prompt reporting the interpreting radiologist is fully responsible for the content of the report. Transcribed Date/Time: 03/06/2025 5:51 AM
[2025-03-06 05:57] VITALS: O2SAT 99
[2025-03-06 06:02] VITALS: TEMP 98.3
[2025-03-06 06:05] VITALS: BP 147/80
== END 2025-03-06 05:37 | disposition home or self-care (01) ==
LOC: ER 00:04
DX: S00.83XA Contusion of other part of head, initial encounter (principal); F10.20 Alcohol dependence, uncomplicated; E83.42 Hypomagnesemia; E87.6 Hypokalemia; W18.30XA Fall on same level, unspecified, initial encounter; I10 Essential (primary) hypertension; I48.91 Unspecified atrial fibrillation
CPT/HCPCS: 93005; 85025; 80048; 36415; 82140; 83735; 85610; 80076; 84484; 83690; 83880; 70450; 71250; 72125; 74176; 71045; J3411; J7030; J3475